=== PATIENT | female | born 1950 | race Hispanic/Latino ===

== ENCOUNTER 2018-04-01 16:23 | Observation (INO) | payer OTHER, MEDICARE ==
[~2018-04-01] VITALS: Ht 152.4 cm; Wt 55.2 kg
[~2018-04-01 16:23] MED LIST: ASPI-1197 PO; BENA1TAB71 PO; CARV6.25 PO; CLON0.2T PO; GLUC-198 PO; HUM10VIA SQ; IBUP-2077 PO; LEVO88TA7 PO; METF-444 PO; SIMV20TA6 PO
[2018-04-01] MEDS ORDERED: DEXTROSE 10%-WATER 1,000 ML IV ONE (16:28)
[2018-04-01 16:44] LABS: BASOPHILS % (AUTO) 1.3 % (0.0-5.0); EOSINOPHILS % (AUTO) 4.6 % (0.0-8.0); LYMPHOCYTES % (AUTO) 25.3 % (21.0-51.0); MEAN CORPUSCULAR HEMOGLOBIN 31.5 pg (27.0-33.0); MEAN CORPUSCULAR HGB CONC 32.9 g/dL (32.0-36.0); MEAN CORPUSCULAR VOLUME 95.7 fL (79-99); MONOCYTES % (AUTO) 6.7 % (3.0-13.0); NEUTROPHILS % (AUTO) 62.1 % (40.0-77.0); NUCLEATED RED BLOOD CELLS 0.1 % (0.0-0.19); PLATELET COUNT (AUTO) 279 K/uL (130-400); RED BLOOD CELL COUNT(AUTO) 3.76 MIL/uL (4.00-5.50); RED CELL DISTRIBUTION WIDTH 13.6 % (11.0-15.5); WHITE BLOOD COUNT (AUTO) 7.8 K/uL (4.8-10.8)
[2018-04-01 16:59] LABS: ALBUMIN 3.9 g/dL (3.5-5.0); BILIRUBIN,TOTAL 0.3 mg/dL (0.2-1.0); CREATININE 1.2 mg/dL (0.5-1.5); POTASSIUM 3.5 mmol/L (3.5-5.1); TOTAL PROTEIN, SERUM 8.6 g/dL (6.0-8.3)
[2018-04-01 17:28] LABS: APPEARANCE,URINE Clear (CLEAR); BILIRUBIN,URINE Negative (NEGATIVE); COLOR,URINE Yellow (YELLOW); GLUCOSE, URINE (UA) Negative (NEGATIVE); KETONES,URINE Negative (NEGATIVE); LEUKOCYTE ESTERASE ,URINE Negative (NEGATIVE); NITRATE,URINE Negative (NEGATIVE); OCCULT BLOOD,URINE Trace (NEGATIVE); PROTEIN,URINE Negative (NEGATIVE); UROBILINOGEN,URINE 0.2 mg/dL (0.2-1.0)
[2018-04-01] MEDS ORDERED: IBUPROFEN 800 MG TAB PO PRN (17:30)
[2018-04-01 17:38] LABS: BACTERIA,URINE Rare /HPF (None Seen); RBC,URINE 0-1 /HPF (0-1); SQUAMOUS EPITHELIAL CELL,UR None Seen /HPF (0-2); WBC,URINE 0-1 /HPF (0-1)
[2018-04-01] MEDS ORDERED: DEXTROSE 50%-WATER 50 ML DISP.SYRIN IV PRN (17:45)
[2018-04-01] MEDS ORDERED: GLUCAGON 1MG KIT 1 MG ML IM PRN (17:45)
[2018-04-01 18:49] VITALS: BP 159/65
[2018-04-01] MEDS: INSULIN HUMULIN R 100 UNIT/ML 3ML SQ SCH (20:47)
[2018-04-01] MEDS: MSM PO SCH (20:49)
[2018-04-01] MEDS: CHONDROITIN A PO SCH (20:49)
[2018-04-01] MEDS: GLUCOSAMINE PO SCH (20:49)
[2018-04-01] MEDS: CARVEDILOL 6.25 MG TABLET PO SCH (20:49)
[2018-04-01] MEDS ORDERED: SIMVASTATIN 20 MG TABLET PO SCH (21:00)
[2018-04-01] MEDS ORDERED: CLONIDINE HCL 0.2 MG TABLET PO SCH (21:00)
[2018-04-02] VITALS: BP 137/55
[2018-04-02 04:00] VITALS: BP 122/62
[2018-04-02 05:47] LABS: HEMOGLOBIN A1C 8.3 % (4.0-6.0)
[2018-04-02 05:55] LABS: ALBUMIN 3.1 g/dL (3.5-5.0); BILIRUBIN,TOTAL 0.3 mg/dL (0.2-1.0); CREATININE 1.1 mg/dL (0.5-1.5); POTASSIUM 4.2 mmol/L (3.5-5.1)
[2018-04-02] MEDS: INSULIN HUMULIN R 100 UNIT/ML 3ML SQ SCH ×2 (06:20→11:51)
[2018-04-02] MEDS ORDERED: LEVOTHYROXINE 88 MCG TABLET PO SCH (06:30)
[2018-04-02] MEDS: MSM PO SCH (08:36)
[2018-04-02] MEDS: GLUCOSAMINE PO SCH (08:36)
[2018-04-02] MEDS: CHONDROITIN A PO SCH (08:36)
[2018-04-02] MEDS: CARVEDILOL 6.25 MG TABLET PO SCH (08:36)
[2018-04-02] MEDS ORDERED: PANTOPRAZOLE SODIUM 40 MG TABLET.DR PO SCH (09:00)
[2018-04-02] MEDS ORDERED: BENAZEPRIL HCL 10 MG TABLET PO SCH (09:00)
[2018-04-02] MEDS ORDERED: HYDROCHLOROTHIAZIDE 25 MG TABLET PO SCH (09:00)
[2018-04-02] MEDS ORDERED: ENOXAPARIN SODIUM 40 MG/0.4 ML SYRINGE SQ SCH (09:00)
[2018-04-02] MEDS ORDERED: ASPIRIN 81MG TAB.CHEW PO SCH (09:00)
[2018-04-02 09:20] VITALS: BP 136/56
[2018-04-02 11:29] VITALS: BP 140/68
[2018-04-02 15:51] VITALS: BP 146/67
== END 2018-04-02 15:45 | disposition home or self-care (01) ==
LOC: EDH 16:23 → EDHIP 17:26 → 3BH 18:38
PROVIDERS: ADMIT Internal Medicine; ATTEND Internal Medicine
DX: E11.649 Type 2 diabetes mellitus with hypoglycemia without coma (principal); I10 Essential (primary) hypertension; E78.5 Hyperlipidemia, unspecified; E16.0 Drug-induced hypoglycemia without coma; I25.10 Atherosclerotic heart disease of native coronary artery without angina pectoris; T38.3X5A Adverse effect of insulin and oral hypoglycemic [antidiabetic] drugs, initial encounter; Z95.1 Presence of aortocoronary bypass graft; Z82.49 Family history of ischemic heart disease and other diseases of the circulatory system; Z83.3 Family history of diabetes mellitus; Z90.710 Acquired absence of both cervix and uterus; Z79.899 Other long term (current) drug therapy; Z79.4 Long term (current) use of insulin
CPT/HCPCS: 36415; 80053; 80061; 81001; 82550; 82948; 83036; 84484; 85025; 93005; 96372; G0378; J1650; J1815; J3490

== ENCOUNTER 2018-05-18 07:36 | Day surgery (SDC) | payer OTHER, MEDICARE ==
[2018-05-18] VITALS (7 sets, daily range): BP systolic 126–188; BP diastolic 61–88
[~2018-05-18] VITALS: Ht 154.9 cm; Wt 52.8 kg
[~2018-05-18 07:36] MED LIST changes: +ALEN70TA47 PO; -BENA1TAB71 PO; +FURO20TA4 PO; -GLUC-198 PO; -HUM10VIA SQ; +INS7030 SQ; +LOSA1TAB42 PO; +SODIUM CHLORIDE 0.9% 1000ML 1,000 ML IV ONE
== END 2018-05-18 10:26 | disposition home or self-care (01) ==
LOC: ENDO 07:36 → DAH 07:36 → ENDO 10:26
PROVIDERS: ATTEND Internal Medicine
DX: D12.2 Benign neoplasm of ascending colon (principal); K63.5 Polyp of colon; K57.30 Diverticulosis of large intestine without perforation or abscess without bleeding; K29.50 Unspecified chronic gastritis without bleeding; E78.5 Hyperlipidemia, unspecified; E03.9 Hypothyroidism, unspecified; E11.9 Type 2 diabetes mellitus without complications; M81.0 Age-related osteoporosis without current pathological fracture; M19.90 Unspecified osteoarthritis, unspecified site; Z79.84 Long term (current) use of oral hypoglycemic drugs; Z79.899 Other long term (current) drug therapy; I25.10 Atherosclerotic heart disease of native coronary artery without angina pectoris; Z79.4 Long term (current) use of insulin
CPT/HCPCS: 43239; 45380; 82948 ×2; 88305; 88312; 93005; A4606; J7030

== ENCOUNTER → 2019-04-21 | Outpatient (CLI) | payer OTHER, MEDICARE ==
[~2019-04-21] MED LIST changes: +ALEN70TA10 PO; -ALEN70TA47 PO; +SIMV-43 PO; -SIMV20TA6 PO; -SODIUM CHLORIDE 0.9% 1000ML 1,000 ML IV ONE
== END | disposition home or self-care (01) ==
LOC: RAH 11:28
PROVIDERS: ATTEND Internal Medicine
DX: S00.93XA Contusion of unspecified part of head, initial encounter (principal); S00.33XA Contusion of nose, initial encounter; X58.XXXA Exposure to other specified factors, initial encounter; Y93.89 Activity, other specified; Y92.89 Other specified places as the place of occurrence of the external cause; Y99.8 Other external cause status
CPT/HCPCS: 70450; 70486

== ENCOUNTER → 2019-05-03 | Outpatient (CLI) | payer OTHER, MEDICARE | END | disposition home or self-care (01) | LOC: RAH 14:49 | PROVIDERS: ATTEND Internal Medicine | DX: I65.23 Occlusion and stenosis of bilateral carotid arteries (principal); G46.2 Posterior cerebral artery syndrome | CPT/HCPCS: 93880 ==

== ENCOUNTER → 2019-07-25 | Outpatient (CLI) | payer OTHER, MEDICARE ==
[~2019-07-25] MED LIST changes: +IOHEXOL-350 50ML VIAL IV ONE
== END | disposition home or self-care (01) ==
LOC: RAH 09:00
PROVIDERS: ATTEND Internal Medicine Cardiovascular Disease
DX: I65.23 Occlusion and stenosis of bilateral carotid arteries (principal)
CPT/HCPCS: 70498; Q9967

== ENCOUNTER → 2020-12-23 | Outpatient (CLI) | payer OTHER, MEDICARE ==
[~2020-12-23] MED LIST changes: -ALEN70TA10 PO; +ALEN70TA80 PO; -IOHEXOL-350 50ML VIAL IV ONE
== END | disposition home or self-care (01) ==
LOC: RAH 11:02
PROVIDERS: ATTEND Internal Medicine
DX: I70.213 Atherosclerosis of native arteries of extremities with intermittent claudication, bilateral legs (principal)
CPT/HCPCS: 93925

== ENCOUNTER 2022-09-24 20:08 | Emergency (ER) | payer MEDICARE, OTHER ==
[~2022-09-24] VITALS: Ht 157.5 cm; Wt 54.4 kg
[2022-09-24 20:27] LABS: BASOPHILS % (AUTO) 0.3 % (0.0-5.0); EOSINOPHILS % (AUTO) 2.2 % (0.0-8.0); HEMATOCRIT 39.4 % (36-48); MEAN CORPUSCULAR HEMOGLOBIN 29.8 pg (27.0-33.0); MEAN CORPUSCULAR HGB CONC 31.7 g/dL (32.0-36.0); MONOCYTES % (AUTO) 6.5 % (3.0-13.0); NEUTROPHILS % (AUTO) 63.7 % (40.0-77.0); PLATELET COUNT (AUTO) 148 K/uL (130-400); RED BLOOD CELL COUNT(AUTO) 4.19 MIL/uL (4.00-5.50); RED CELL DISTRIBUTION WIDTH 17.1 % (11.0-15.5); WHITE BLOOD COUNT (AUTO) 5.8 K/uL (4.8-10.8)
[2022-09-24 20:52] LABS: B-TYPE NATRIURETIC PEPTIDE 2200 pg/mL (0-100)
[2022-09-24 20:59] LABS: ALBUMIN 3.2 g/dL (3.5-5.0); CREATININE 1.3 mg/dL (0.5-1.5); POTASSIUM 3.4 mmol/L (3.5-5.1); TOTAL PROTEIN, SERUM 7.2 g/dL (6.0-8.3)
[2022-09-24] MEDS ORDERED: FUROSEMIDE 40MG VIAL IV ONE (21:00)
[2022-09-24] MEDS ORDERED: IBUP-2076 PO (21:43)
[2022-09-24] MEDS ORDERED: OSEL75 PO (21:43)
[2022-09-24 21:54] VITALS: BP 149/63
== END 2022-09-24 22:04 | disposition home or self-care (01) ==
LOC: EDH 20:08
DX: R07.89 Other chest pain (principal); K80.20 Calculus of gallbladder without cholecystitis without obstruction; J10.1 Influenza due to other identified influenza virus with other respiratory manifestations; E11.9 Type 2 diabetes mellitus without complications; I10 Essential (primary) hypertension; Z79.1 Long term (current) use of non-steroidal anti-inflammatories (NSAID); Z79.4 Long term (current) use of insulin; Z79.82 Long term (current) use of aspirin; Z79.84 Long term (current) use of oral hypoglycemic drugs; Z79.899 Other long term (current) drug therapy; Z95.1 Presence of aortocoronary bypass graft; Z20.822 Contact with and (suspected) exposure to COVID-19
CPT/HCPCS: 99285; 96374; 71045; 87635; 84484; 80053; 83880; 83690; 85025; 87804 ×2; 36415; 93005; C9803; J1940

== ENCOUNTER → 2022-11-19 | Outpatient (CLI) | payer OTHER ==
[~2022-11-19] MED LIST changes: +IBUP-2076 PO; +OSEL75 PO
== END | disposition home or self-care (01) ==
LOC: SHCH 07:53
PROVIDERS: ATTEND Internal Medicine Cardiovascular Disease
DX: I08.8 Other rheumatic multiple valve diseases (principal); I65.23 Occlusion and stenosis of bilateral carotid arteries; I25.10 Atherosclerotic heart disease of native coronary artery without angina pectoris; E11.9 Type 2 diabetes mellitus without complications; E78.5 Hyperlipidemia, unspecified; E03.9 Hypothyroidism, unspecified; I87.2 Venous insufficiency (chronic) (peripheral); I10 Essential (primary) hypertension
CPT/HCPCS: 93306; 93880; 93970

== ENCOUNTER 2023-02-10 07:45 | Day surgery (SDC) | payer OTHER ==
[2023-02-08 11:58] LABS: BASOPHILS # (AUTO) 0.03 K/uL (0.00-0.20); BASOPHILS % (AUTO) 0.5 % (0.0-5.0); EOSINOPHILS # (AUTO) 0.45 K/uL (0.00-0.70); EOSINOPHILS % (AUTO) 7.7 % (0.0-8.0); HEMATOCRIT 36.6 % (36-48); IMMATURE GRANULOCYTE ABSOLUTE 0.02 K/uL (0-1); LYMPHOCYTES % (AUTO) 17.8 % (21.0-51.0); MEAN CORPUSCULAR HEMOGLOBIN 30.5 pg (27.0-33.0); MEAN CORPUSCULAR HGB CONC 30.6 g/dL (32.0-36.0); MEAN CORPUSCULAR VOLUME 99.7 fL (79-99); MONOCYTES # (AUTO) 0.5 K/uL (0.1-1.0); MONOCYTES % (AUTO) 8.7 % (3.0-13.0); NEUTROPHILS # (AUTO) 3.8 K/uL (1.8-7.7); PLATELET COUNT (AUTO) 205 K/uL (130-400); RED BLOOD CELL COUNT(AUTO) 3.67 MIL/uL (4.00-5.50); WHITE BLOOD COUNT (AUTO) 5.8 K/uL (4.8-10.8)
[2023-02-08 12:13] LABS: CREATININE 1.1 mg/dL (0.5-1.5); POTASSIUM 4.7 mmol/L (3.5-5.1)
[2023-02-08 12:16] LABS: INR 1.16 (0.85-1.15); PROTHROMBIN TIME 13.3 SEC (9.6-11.6)
[2023-02-08 12:17] LABS: PARTIAL THROMBOPLASTIN TIME 31.2 SEC (26.3-35.5)
[2023-02-08 14:12] VITALS: BP 134/58; PULSE 80; RESP 18
[2023-02-10] VITALS (10 sets, daily range): BP systolic 110–150; BP diastolic 47–68; PULSE 75–88; RESP 11–18
[~2023-02-10] VITALS: Ht 152.4 cm; Wt 55.8 kg
[~2023-02-10 07:45] MED LIST changes: -ALEN70TA80 PO; -ASPI-1197 PO; -CARV6.25 PO; +DAPA10TA PO; +DOCU100C33 PO; +ERGO500093 PO; -FURO20TA4 PO; +GABA-529 PO; +HUM10VIA SQ; -IBUP-2076 PO; -IBUP-2077 PO; -INS7030 SQ; +LEVO75 PO; -LEVO88TA7 PO; -LOSA1TAB42 PO; -OSEL75 PO; +RIVA2.5T PO; +SACU1TAB7 PO; -SIMV-43 PO; +SIMV-46 PO; +TRAM-355 PO
[2023-02-10] MEDS ORDERED: 0.9%NACL 1000ML 1,000 ML IV ONE (09:04)
[2023-02-10] MEDS ORDERED: FURO20TA4 PO (10:08)
[2023-02-10] MEDS ORDERED: BUPIVACAINE/PF 0.25% 30ML VIAL IJ ONE (10:19)
[2023-02-10] MEDS ORDERED: IOHEXOL-350 50ML VIAL IV ONE (10:19)
[2023-02-10] MEDS ORDERED: LIDOCAINE HCL 1% MDV 50ML VIAL ONE (10:19)
[2023-02-10] MEDS ORDERED: CEFAZOLIN SODIUM 1 GM VIAL ONE (10:52)
[2023-02-10] MEDS ORDERED: MIDAZOLAM HCL 1 MG/ML 2ML VIAL ONE ×2 (10:57→12:38)
[2023-02-10] MEDS ORDERED: MEPERIDINE-PF 25 MG/ML SYG ONE ×2 (10:57→12:38)
[2023-02-10] MEDS ORDERED: THROMBIN-JMI 5000 UNIT/VIAL TP ONE (12:09)
[2023-02-10] MEDS ORDERED: BACITRACIN 1 EACH PACKET TP ONE (12:30)
[2023-02-10] MEDS ORDERED: ACETAMINOPHEN WITH CODEINE 1 TAB TAB PO PRN ×2 (13:00→13:30)
[2023-02-10] MEDS ORDERED: ACETAMINOPHEN 500 MG TABLET PO PRN (13:00)
== END 2023-02-10 18:15 | disposition home or self-care (01) ==
LOC: DAH 07:45
PROVIDERS: ATTEND Internal Medicine Cardiovascular Disease
DX: Z45.02 Encounter for adjustment and management of automatic implantable cardiac defibrillator (principal); I25.5 Ischemic cardiomyopathy; I11.0 Hypertensive heart disease with heart failure; I50.42 Chronic combined systolic (congestive) and diastolic (congestive) heart failure; I25.2 Old myocardial infarction; E11.9 Type 2 diabetes mellitus without complications; E78.5 Hyperlipidemia, unspecified; E03.9 Hypothyroidism, unspecified; M19.90 Unspecified osteoarthritis, unspecified site; M81.0 Age-related osteoporosis without current pathological fracture; Z79.4 Long term (current) use of insulin; Z79.899 Other long term (current) drug therapy; Z79.01 Long term (current) use of anticoagulants; Z79.82 Long term (current) use of aspirin; Z90.710 Acquired absence of both cervix and uterus; Z98.890 Other specified postprocedural states; Z82.49 Family history of ischemic heart disease and other diseases of the circulatory system; Z83.3 Family history of diabetes mellitus
CPT/HCPCS: 80048; 85025; 85610; 85730; 36415; 93005; 33264; 33225; 82948 ×2; 71045; C1769 ×2; C1882; C1900; J0690; J7030; J3490 ×3; J2250 ×2; J2175 ×2; Q9967; A4615; A4215; A6251; A4222; A4221; A4216; A6258; A4606; A4223 ×2; 99156; 99157

== ENCOUNTER 2023-07-02 18:49 | Observation (INO) | payer OTHER ==
[~2023-07-02] VITALS: Ht 152.4 cm; Wt 51.6 kg
[~2023-07-02 18:49] MED LIST changes: +FURO20TA4 PO
[2023-07-02] MEDS ORDERED: IOHEXOL 350 MG/ML 100ML INFUS..BTL IV ONE (19:35)
[2023-07-02 19:45] LABS: BASOPHILS # (AUTO) 0.04 K/uL (0.00-0.20); BASOPHILS % (AUTO) 0.4 % (0.0-5.0); EOSINOPHILS # (AUTO) 0.23 K/uL (0.00-0.70); EOSINOPHILS % (AUTO) 2.4 % (0.0-8.0); HEMATOCRIT 37.4 % (36-48); IMMATURE GRANULOCYTE ABSOLUTE 0.04 K/uL (0-1); LYMPHOCYTES # (AUTO) 1.3 K/uL (1.0-4.8); LYMPHOCYTES % (AUTO) 13.9 % (21.0-51.0); MEAN CORPUSCULAR HEMOGLOBIN 31.1 pg (27.0-33.0); MEAN CORPUSCULAR HGB CONC 32.6 g/dL (32.0-36.0); MEAN CORPUSCULAR VOLUME 95.4 fL (79-99); MONOCYTES # (AUTO) 0.6 K/uL (0.1-1.0); MONOCYTES % (AUTO) 6.7 % (3.0-13.0); NEUTROPHILS # (AUTO) 7.2 K/uL (1.8-7.7); NEUTROPHILS % (AUTO) 76.2 % (40.0-77.0); PLATELET COUNT (AUTO) 183 K/uL (130-400); RED BLOOD CELL COUNT(AUTO) 3.92 MIL/uL (4.00-5.50); WHITE BLOOD COUNT (AUTO) 9.4 K/uL (4.8-10.8)
[2023-07-02 19:55] LABS: CREATININE 1.1 mg/dL (0.5-1.5); POTASSIUM 4.3 mmol/L (3.5-5.1)
[2023-07-02 20:00] LABS: ALBUMIN 3.8 g/dL (3.5-5.0); BILIRUBIN,TOTAL 0.6 mg/dL (0.2-1.0); TOTAL PROTEIN, SERUM 8.6 g/dL (6.0-8.3)
[2023-07-02] MEDS: ONDANSETRON 4MG INJ IVP ONE (20:19)
[2023-07-02] MEDS: FAMOTIDINE 20MG VIAL IV ONE (20:20)
[2023-07-02] MEDS: KETOROLAC 30MG VIAL (30MG/ML) IVP ONE (20:20)
[2023-07-02] MEDS ORDERED: KETOROLAC 15MG/ML VIAL (15MG/ML) IV PRN (23:00)
[2023-07-02] MEDS ORDERED: ACETAMINOPHEN 325 MG TAB PO PRN (23:00)
[2023-07-03] VITALS (8 sets, daily range): BP systolic 128–143; BP diastolic 56–67; PULSE 70–80; RESP 16–18; O2SAT 94–98
[2023-07-03 05:50] LABS: BASOPHILS # (AUTO) 0.03 K/uL (0.00-0.20); BASOPHILS % (AUTO) 0.5 % (0.0-5.0); EOSINOPHILS # (AUTO) 0.09 K/uL (0.00-0.70); EOSINOPHILS % (AUTO) 1.6 % (0.0-8.0); IMMATURE GRANULOCYTE ABSOLUTE 0.02 K/uL (0-1); LYMPHOCYTES # (AUTO) 1.3 K/uL (1.0-4.8); LYMPHOCYTES % (AUTO) 22.8 % (21.0-51.0); MEAN CORPUSCULAR HEMOGLOBIN 31.1 pg (27.0-33.0); MEAN CORPUSCULAR HGB CONC 32.2 g/dL (32.0-36.0); MEAN CORPUSCULAR VOLUME 96.6 fL (79-99); MONOCYTES # (AUTO) 0.5 K/uL (0.1-1.0); MONOCYTES % (AUTO) 8.5 % (3.0-13.0); NEUTROPHILS # (AUTO) 3.8 K/uL (1.8-7.7); NEUTROPHILS % (AUTO) 66.3 % (40.0-77.0); PLATELET COUNT (AUTO) 167 K/uL (130-400); RED BLOOD CELL COUNT(AUTO) 3.83 MIL/uL (4.00-5.50); WHITE BLOOD COUNT (AUTO) 5.8 K/uL (4.8-10.8)
[2023-07-03 06:02] LABS: PROTHROMBIN TIME 11.6 SEC (9.6-11.6)
[2023-07-03 06:06] LABS: ALBUMIN 3.2 g/dL (3.5-5.0); BILIRUBIN,TOTAL 0.5 mg/dL (0.2-1.0); CREATININE 1.2 mg/dL (0.5-1.5); MAGNESIUM 1.7 mg/dL (1.80-2.40); POTASSIUM 4.8 mmol/L (3.5-5.1); TOTAL PROTEIN, SERUM 7.5 g/dL (6.0-8.3)
[2023-07-03 07:09] LABS: ERYTHROCYTE SEDIMENTATION RATE 57 MM/HR (0-30)
[2023-07-03] MEDS: FAMOTIDINE 20MG TAB PO SCH (09:03)
[2023-07-03] MEDS: ACETAMINOPHEN 325 MG TAB PO PRN (09:05)
[2023-07-03] MEDS ORDERED: CARV6.25 PO (09:14)
[2023-07-03] MEDS ORDERED: LORA10TA7 PO (09:14)
[2023-07-03] MEDS ORDERED: HYDR12.54 PO (09:14)
[2023-07-03] MEDS ORDERED: FAMO40TA75 PO (09:14)
[2023-07-03] MEDS ORDERED: ACETAMINOPHEN WITH CODEINE 1 TAB TAB PO PRN (13:30)
[2023-07-03] MEDS ORDERED: CLONIDINE HCL 0.2 MG TABLET PO PRN (17:30)
[2023-07-03] MEDS ORDERED: MAGNESIUM 2GM PREMIX 50ML 50 ML IV PRN (19:30)
[2023-07-03] MEDS: METFORMIN HCL 500 MG TABLET PO SCH (20:27)
[2023-07-03] MEDS: SACUBITRIL/VALSARTAN 1 EACH TABLET PO SCH (20:27)
[2023-07-03] MEDS: CARVEDILOL 6.25 MG TABLET PO SCH (20:28)
[2023-07-03] MEDS: RIVAROXABAN 2.5 MG TABLET PO SCH (20:28)
[2023-07-03] MEDS: SIMVASTATIN 20 MG TABLET PO SCH (20:28)
[2023-07-03] MEDS: INSULIN HUMULIN R 100 UNIT/ML 3ML SQ SCH (20:33)
[2023-07-03] MEDS: TRAMADOL HCL 50 MG TABLET PO PRN (20:40)
[2023-07-04] VITALS (9 sets, daily range): BP systolic 93–146; BP diastolic 52–57; PULSE 60–70; RESP 18–20; O2SAT 94
[2023-07-04 04:29] LABS: APPEARANCE,URINE CLEAR (CLEAR); BILIRUBIN,URINE NEGATIVE (NEGATIVE); COLOR,URINE YELLOW (YELLOW); GLUCOSE, URINE (UA) 200 mg/dL (NEGATIVE); KETONES,URINE NEGATIVE (NEGATIVE); LEUKOCYTE ESTERASE ,URINE 250 Leu/uL (NEGATIVE); NITRATE,URINE NEGATIVE (NEGATIVE); OCCULT BLOOD,URINE NEGATIVE (NEGATIVE); PH,URINE 5.5 (5.0-8.0); PROTEIN,URINE 20 mg/dL (NEGATIVE); UROBILINOGEN,URINE 3 mg/dL (0.2-1.0)
[2023-07-04 04:36] LABS: ADD UA MICROSCOPIC YES
[2023-07-04 04:38] LABS: MUCUS,URINE RARE LPF (None Seen); SQUAMOUS EPITHELIAL CELL,UR RARE /HPF (0-2); WBC,URINE 26-50 /HPF (0-1)
[2023-07-04] MEDS: LEVOTHYROXINE 75 MCG TABLET PO SCH (05:38)
[2023-07-04] MEDS: POLYETHYLENE GLYCOL 3350 17 GM POWD.PACK PO SCH (09:19)
[2023-07-04] MEDS: LORATADINE 10 MG TABLET PO SCH (09:21)
[2023-07-04] MEDS: HYDROCHLOROTHIAZIDE 25 MG TABLET PO SCH (09:22)
[2023-07-04] MEDS: CEFTRIAXONE 1G VIAL IVPB SCH (11:42)
[2023-07-04] MEDS: ONDANSETRON 4MG INJ IV PRN (12:22)
[2023-07-04] MEDS: BISACODYL 10 MG SUPP.RECT RC ONE (17:26)
[2023-07-04] MEDS: LIDOCAINE 4% ADH..PATCH TP SCH (18:44)
[2023-07-04] MEDS: DOCUSATE SODIUM 100 MG CAP PO PRN (20:28)
[2023-07-05] VITALS (7 sets, daily range): BP systolic 92–126; BP diastolic 46–63; PULSE 60–67; RESP 15–20; O2SAT 94
[2023-07-05] MEDS: BISACODYL 10 MG SUPP.RECT RC PRN (06:38)
== END 2023-07-05 14:30 | disposition home or self-care (01) ==
LOC: EDH 18:49 → EDHIP 22:35 → INTOOBSV 22:35 → 2DH 07-03 03:27
PROVIDERS: ADMIT Internal Medicine; ATTEND Internal Medicine
DX: S22.42XA Multiple fractures of ribs, left side, initial encounter for closed fracture (principal); J93.9 Pneumothorax, unspecified; E11.65 Type 2 diabetes mellitus with hyperglycemia; I10 Essential (primary) hypertension; I25.10 Atherosclerotic heart disease of native coronary artery without angina pectoris; E03.9 Hypothyroidism, unspecified; M19.90 Unspecified osteoarthritis, unspecified site; E78.5 Hyperlipidemia, unspecified; I48.91 Unspecified atrial fibrillation; K21.9 Gastro-esophageal reflux disease without esophagitis; Z79.01 Long term (current) use of anticoagulants; Z95.1 Presence of aortocoronary bypass graft; Z79.899 Other long term (current) drug therapy; W01.190A Fall on same level from slipping, tripping and stumbling with subsequent striking against furniture, initial encounter; Y92.89 Other specified places as the place of occurrence of the external cause; Y93.01 Activity, walking, marching and hiking; Y99.8 Other external cause status
CPT/HCPCS: 99285; 70450 ×2; 96375; 80053 ×2; 85025 ×2; 36415 ×2; 73080; 73060; 73590; 73564; 72125; 71260; 74177; 93005; 96372 ×3; 83735; 85610; 85730; 85651; 82948 ×11; 96365; 97161; 71045; 97530; 97116; 96376 ×2; 87088; 81001; 96366; J3490; J2405 ×3; J1885; Q9967; J1815 ×3; G0378; J0696; G8980-CI; G8983-CI

== ENCOUNTER → 2023-07-14 | Outpatient (CLI) | payer OTHER ==
[~2023-07-14] MED LIST changes: +CARV6.25 PO; -CLON0.2T PO; +FAMO40TA75 PO; +HYDR12.54 PO; +LORA10TA7 PO; -TRAM-355 PO
== END | disposition home or self-care (01) ==
LOC: RAH 14:45
PROVIDERS: ATTEND Internal Medicine
DX: I51.7 Cardiomegaly (principal); J93.9 Pneumothorax, unspecified; M47.815 Spondylosis without myelopathy or radiculopathy, thoracolumbar region
CPT/HCPCS: 71046

== ENCOUNTER → 2024-02-21 | Outpatient (CLI) | payer OTHER | END | disposition home or self-care (01) | LOC: SHCH 13:12 | PROVIDERS: ATTEND Internal Medicine Cardiovascular Disease | DX: I87.2 Venous insufficiency (chronic) (peripheral) (principal); I87.1 Compression of vein; I65.23 Occlusion and stenosis of bilateral carotid arteries; I73.9 Peripheral vascular disease, unspecified | CPT/HCPCS: 93880; 93925; 93970 ==

== ENCOUNTER → 2024-07-24 | Outpatient (CLI) | payer OTHER, MEDICARE ==
[~2024-07-24] MED LIST changes: +ALEN35TA53 PO; +ASPI-1443 PO; +CEFD300C3 PO; +CLON-353 PO; -DOCU100C33 PO; +FAMO40TA7 PO; -FAMO40TA75 PO; -HUM10VIA SQ; -HYDR12.54 PO; +INSU10VI3 SQ; +LEVO100C4 PO; -LEVO75 PO; +OSEL75 PO; +RIVA10TA PO; -RIVA2.5T PO
[2024-07-24] MEDS: REGADENOSON 0.4 MG/5 ML PF SYG IVP ONE (11:16)
--- NOTE | 2024-07-31 10:46 | HMCSR ---
APPROVED REPORT Height: 5 ft 0in Weight: 125 lbs TEST INDICATIONS CAD The imaging protocol used to acquire images was Rest Tc-99m/stress Tc-99m 1 day Consent: The procedure was explained and understood by the patient. Informerd consent was witnessed Hugh BEACH RN First, low dose rest was performed then high dose stress. RESTING DATA: The resting ekg shows: NSR, V paced Rest SPECT myocardial perfusion imaging was performed in supine position 59 minutes following the int ravenous injection of 10.8 mCi of Tc-99 Sestamibi. Time of rest injection: 09:15: Date: 07/24/2024 Time of rest imagin:14: Date: 07/24/2024 PHARMACOLOGIC STRESS: Pharmacologic stress test was performed by injecting regadenoson 0.4 mg IV push followed by the intra venous injection of 32.0 mCi of Tc-99 Sestamibi. Time of stress injection: 10:39: Date: 07/24/2024 Time of stress imagin:01: Date: 07/24/2024 Heart Rate at time of stress injection: 70 bpm. Gated Stress SPECT was performed 82 minutes after stress injection. The images were gated to evaluate regional wall motion and calculate left ventricular ejection fracti on. STRESS DETAILS Reason for Termination: Infusion complete Stress Symptoms: Dyspnea Max HR Achieved: 70 bpm % of APMHR Achieved: 48 Max Blood Pressure: 149/74 mmHg Stress ECG: NSR, V-paced Study quality was good. Lung uptake was Normal. Artifact: breast and diaphragmatic artifact LEFT VENTRICLE Size: The left ventricular size is mildly to moderately dilated. Systolic Function:The left ventricular systolic function is moderately to severely decreased. Wall Motion: Severe global hypokinesis LV PERFUSION Stress Perfusion: Size:Medium (3-4 segments) Severity: Mild to moderate Location: lateral Rest Perfusion: Size: Medium (3-4 segments) Severity: Mild to moderate Location: lateral LV PERFUSION 2 Stress Perfusion: Size:Medium (3-4 segments) Severity: Severe Location: mid-anterolateral Rest Perfusion: Size: Medium (3-4 segments) Severity: Severe Location: mid-anterolateral IMPRESSION Abnormal pharmacologic nuclear stress test. Global LV Function: Severely reduced Stress ECG Summary: Nondiagnostic LV Perfusion Summary: Abnormal Conclusion Abnormal pharmacologic nuclear stress test for fixed defects, dilated LV and reduced EF No reversible ischemia Global LV Function: Severely reduced Stress ECG Summary: Nondiagnostic LV Perfusion Summary: Abnormal for mutiple fixed defects
== END | disposition home or self-care (01) ==
LOC: SHCH 08:47
PROVIDERS: ATTEND Internal Medicine Cardiovascular Disease
DX: I34.0 Nonrheumatic mitral (valve) insufficiency (principal); I25.10 Atherosclerotic heart disease of native coronary artery without angina pectoris; R06.09 Other forms of dyspnea
CPT/HCPCS: 78452; 93017; J2785; A9500 ×2

== ENCOUNTER 2024-08-09 20:32 | Emergency (ER) | payer OTHER, MEDICARE ==
[~2024-08-09] VITALS: Ht 152.4 cm; Wt 48.5 kg
[~2024-08-09 20:32] MED LIST changes: +FURO40TA5 PO; -LEVO100C4 PO; +LEVO100C5 PO; -OSEL75 PO
--- NOTE | 2024-08-09 20:59 | ERN ---
ED Note History of Present Illness Stated Complaint: ABD PAIN, RECTAL BLEEDING Chief Complaint: Abdominal Pain Time Seen by MD: 20:54 Dictation: This is a 73-year-old female who was recently admitted to the hospital his complaints of abdominal bloating chronic abdominal complaints. She comes back in stating that she has ongoing chronic abdominal pain and also had some bleeding in urine although initially she stated that the blood was in the rectum. She stated that she has perineal pain and also hypogastric pain. She has had chronic abdominal issues for a long time and she was recently discharged after course of hospitalization last week. Patient's daughter verified the history for me. No history of any fevers chills or rigors. No history of any kidney stones. She does report small amounts of mucoid discharge from the urethra. She denied any blood from the stools for me. No shortness of breath PND orthopnea no chest pain Temperature 98.1 pulse 100 respirations 20 blood pressure 99/82 initially. past medical history of coronary artery disease CABG 2007, ischemic heart disease ejection fraction of 25-30% with a biventricular ICD, hypertension hyperlipidemia and type 2 diabetes mellitus, CKD stage and bilateral carotid artery disease 50% stenosis, peripheral artery disease, hypothyroidism and chronic GI symptoms bloating and abdominal pain Allergies: Coded Allergies: No Known Drug Allergies (Unverified Allergy, Unknown, 07/05/15) Home Meds Active Scripts Acetaminophen with Codeine (Acetaminophen-Cod #3 Tablet) 300 Mg-30 Mg Tablet, 1 TAB PO Q6HPRN PRN for pain, #7 TAB 0 Refills Prov:KELLY CHRISTOPHER MD 08/10/24 Nitrofurantoin Monohyd/M-Cryst (Macrobid 100 mg Capsule) 100 Mg Capsule, 1 CAP PO BID for 7 Days, #14 CAP 0 Refills Prov:KELLY CHRISTOPHER MD 08/10/24 Cefdinir (Cefdinir) 300 Mg Capsule, 1 CAP PO BID for uti for 10 Days, #20 CAP 0 Refills Prov:BRIAN SILVERIO MD 08/02/24 Furosemide (Furosemide) 40 Mg Tablet, 1 TAB PO DAILY for HEARTFAILURE for 30 Days, #30 TAB 0 Refills Prov:BRIAN SILVERIO MD 08/02/24 Furosemide (Furosemide) 20 Mg Tablet, 20 MG PO DAILYLUNCH for 30 Days, #30 TAB 0 Refills Prov:BRIAN SILVERIO MD 08/02/24 Reported Medications Alendronate Sodium (Alendronate Sodium) 35 Mg Tablet, 35 MG PO QWEEK, TAB 07/30/24 Metformin HCl (Metformin HCl) 500 Mg Tablet, 1 TAB PO BID for 30 Days, #60 TAB 0 Refills 07/30/24 Gabapentin (Gabapentin) 100 Mg Capsule, 100 MG PO TID, CAP 07/30/24 Loratadine (Loratadine) 10 Mg Tablet, 10 MG PO DAILY, TAB 07/30/24 Famotidine (Famotidine) 40 Mg Tablet, 1 TAB PO DAILY for 30 Days, #30 TAB 0 Refills 07/30/24 Ergocalciferol (Vitamin D2) (Vitamin D2) 1,250 Mcg (79076 Unit) Capsule, 1250 MCG PO QWEEK, CAP 07/30/24 Insuln Asp Prt/Insulin Aspart (Novolog Mix 70-30 Vial) 100 Unit/Ml (70-30) Vial, 10 UNIT SQ HS, VIAL 07/04/24 Insuln Asp Prt/Insulin Aspart (Novolog Mix 70-30 Vial) 100 Unit/Ml (70-30) Vial, 20 UNIT SQ DAILY, VIAL 07/04/24 Clonidine HCl (Catapress 0.2 mg Tab) 0.2 Mg Tablet, 1 TAB PO HS 07/04/24 Levothyroxine Sodium (Levothyroxine) 100 Mcg Capsule, 1 CAP PO DAILY for 30 Days, #30 CAP 0 Refills 07/04/24 Rivaroxaban (Xarelto) 10 Mg Tablet, 2.5 MG PO BID, TAB 07/04/24 Sacubitril/Valsartan (Entresto 49 mg-51 mg Tablet) 49 Mg-51 Mg Tablet, 1 TAB PO BID for 30 Days, #60 TAB 0 Refills 07/04/24 Aspirin (Aspirin EC) 81 Mg Tablet.dr, 1 TAB PO DAILY for 30 Days, #30 TAB 0 Refills 07/04/24 Dapagliflozin Propanediol (Farxiga) 10 Mg Tablet, 1 TAB PO DAILY for 30 Days, #30 TAB 0 Refills 07/04/24 Carvedilol (Carvedilol) 6.25 Mg Tablet, 6.25 MG PO BID, TAB 07/03/23 Simvastatin (Simvastatin) 40 Mg Tablet, 1 TAB PO HS 02/08/23 Past Medical History Past Medical History: Arthritis, Diabetes-Type II, Hypertension, Hypothyroid Surgical History: CABG, Pacer/AICD Family History: Negative Social History: Negative History: Not Applicable RN Note Reviewed/Agreed w/PFSH: Yes Review of System Dictation Constitutional: Negative for fever,chills, and weight loss Eyes: Negative for injury, pain,redness, and discharge ENT: Negative for injury,pain or swelling Cardiovascular: Negative for chest pain, palpitations, and edema Respiratory: Negative for shortness of breath, cough, and wheezing, Abdomen/GI: Positive for lower abdominal pain, denies nausea, vomiting, diarrhea, and constipation Back: Negative for injury and pain : Negative for injury, bleeding and positive for pain in the private area and discharge MS/Extremity: Negative for injury and deformity Skin: Negative for rash, and discoloration Neuro: Negative for headache, weakness, numbness, tingling, and seizure Psych: Negative for suicide ideation, homicidal ideation, and hallucinations Initial Vital Sign VS Vital Signs Date Time Temp Pulse Resp B/P (MAP) Pulse Ox O2 Delivery O2 Flow Rate FiO2 08/09/24 20:50 98.1 100 20 99/82 98 Room Air 0 Physical Exam Dictation General: awake, alert, NAD Head/Face: Normocephalic, atraumatic Eyes: PERRL, EOMI, vision at baseline ENT: oral cavity clear, TMs clear, no signs of infection Neck: Trachea midline, supple, no nuchal rigidity Cardiovascular: RRR, normal S1/S2, No MRGs, no JVD Respiratory: CTAB, no respiratory distress, No rales or wheezes Abdomen: Soft, mild tenderness in the hypogastrium mons pubis, non-distended, normal bowel sounds, no guarding or rebound. Vulva did not show any blood or discharge. No blood in the anus or rectum Skin: Warm, dry, normal turgor, no rash MS/Extremity: Pulses equal, no cyanosis, neurovascular intact, FROM Neuro: COAx4, GCS 15, strength 5/5, CN 2-12 intact, normal cerebellar exam, normal gait, Psych: Normal behavior, mood, and affect normal Extremities-trace edema without any palpable cords, Homans sign is negative Results (Laboratory/Radiology) Laboratory/Radiology Laboratory Tests Test 08/09/24 21:08 White Blood Count 10.7 K/uL (4.8-10.8) Red Blood Count 4.58 MIL/uL (4.00-5.50) Hemoglobin 13.5 g/dL (12.0-16.0) Hematocrit 43.8 % (36-48) Mean Corpuscular Volume 95.6 fL (79-99) Mean Corpuscular Hemoglobin 29.5 pg (27.0-33.0) Mean Corpuscular Hemoglobin Concent 30.8 g/dL (32.0-36.0) L Red Cell Distribution Width 16.1 % (11.0-15.5) H Platelet Count 306 K/uL (130-400) Mean Platelet Volume 10.5 fL (7.5-10.5) Immature Granulocyte % (Auto) 0.3 % (0-1) Neutrophils (%) (Auto) 78.3 % (40.0-77.0) H Lymphocytes (%) (Auto) 14.4 % (21.0-51.0) L Monocytes (%) (Auto) 5.6 % (3.0-13.0) Eosinophils (%) (Auto) 1.0 % (0.0-8.0) Basophils (%) (Auto) 0.4 % (0.0-5.0) Neutrophils # (Auto) 8.4 K/uL (1.8-7.7) H Lymphocytes # (Auto) 1.6 K/uL (1.0-4.8) Monocytes # (Auto) 0.6 K/uL (0.1-1.0) Eosinophils # (Auto) 0.11 K/uL (0.00-0.70) Basophils # (Auto) 0.04 K/uL (0.00-0.20) Absolute Immature Granulocyte (auto 0.03 K/uL (0-1) Nucleated Red Blood Cells 0.0 % (0.0-0.19) Red Blood Cell Morphology See comments Sodium Level 141 mmol/L (136-145) Potassium Level 3.4 mmol/L (3.5-5.1) L Chloride Level 101 mmol/L (101-111) Carbon Dioxide Level 33 mmol/L (21-32) H Blood Urea Nitrogen 14 mg/dL (7-18) Creatinine 1.3 mg/dL (0.5-1.0) H Glomerular Filtration Rate Calc 43 mL/min (>90) Random Glucose 179 mg/dL (70-105) H Total Calcium 8.1 mg/dL (8.5-10.1) L Total Creatine Kinase 98 U/L (21-232) # Troponin I High Sensitivity 23.9 ng/L (4-50) B-Type Natriuretic Peptide 920 pg/mL (0-100) H Serum Alcohol < 3 mg/dL (0-10) Labs Reviewed?: Yes Ultrasound Comment: Echocardiogram Conclusion The LVEF is 50-55%. Septal bounce is present. Device lead is present in the right ventricle. The left atrium is moderately dilated. Right atrium and right ventricle are severely dilated. DICTATED BY: JUAN PAL DO DATE: 07/04/2428 ELECTRONICALLY SIGNED BY: JUAN PAL DO DATE: 07/04/[address] Scan Comment: CT ABDOMEN WITHOUT CONTRAST. CT PELVIS WITHOUT CONTRAST. INDICATION: Lower abdominal pain. TECHNIQUE: Routine transaxial imaging using 5 mm slice thickness through the abdomen and pelvis without the administration of IV contrast. Thin slice reconstructions are also provided. Coronal and sagittal reformatted images acquired for interpretation. CT was performed with one or more of the following dose reduction techniques: Automated exposure control, adjustment of the mA and/or kV according to patient size, or use of iterative reconstruction technique. COMPARISON: 07/02/2023 FINDINGS: ON NONCONTRAST IMAGING: ABDOMEN: Heart is enlarged. Trace right pleural effusion. No abnormal renal calcifications, hydronephrosis, perinephric inflammation, or proximal hydroureter detected. Mild liver contour nodularity without biliary duct dilation. Liver is normal in size. The spleen is normal in size and attenuation. Several peripherally having calcific gallstones. The pancreas appears normal without pancreatic duct dilation. The adrenal glands appear normal. No significant abdominal, retrocrural or retroperitoneal adenopathy noted. No evidence for intra-abdominal free air or organized fluid collection. Small amount of free fluid scattered throughout the abdomen and pelvis. No aortic aneurysmal dilation identified. PELVIS: Velazquez catheter occupies an empty urinary bladder. No evidence for free air or organized pelvic fluid collection. No significant pelvic adenopathy detected. Visualized small and large bowel loops appear unremarkable. Terminal ileum appears unremarkable. The appendix appears normal. Multiple chronic left mid to lower rib fracture deformities. Spine is intact. IMPRESSION: 1. Mild liver contour nodularity may represent cirrhotic disease. Correlation with liver function tests is recommended. Small-volume abdominopelvic ascites may be related. 2. Cholelithiasis. 3. Trace right pleural fluid. 4. Cardiomegaly. DICTATED BY: JOHN MURPHY MD DATE: 07/30/24 1656 ELECTRONICALLY SIGNED BY: JOHN MURPHY MD DATE: 07/30/24 1701 ED Course ED Course Orders Procedure Category Date Status Time Urinalysis Profile LAB 08/09/24 Logged 20:56 Alcohol, Blood LAB 08/09/24 Complete 20:59 Cardiac Panel LAB 08/09/24 Complete 20:59 Cbc With Differential LAB 08/09/24 Complete 20:59 Basic Metabolic Panel LAB 08/09/24 Complete 20:59 B-Type Natriuretic LAB 08/09/24 Complete Peptide 20:59 12 Lead Ekg Tracing- EKG 08/09/24 Complete Technical 20:59 Morphine 2mg Syg PHA 08/09/24 Complete (Morphine 2mg Syg) 23:00 Current Medications Medications (Trade) Dose Ordered Sig/Sigrid Route PRN Reason Start Time Stop Time Status Last Admin Dose Admin Morphine Sulfate (morPHINE 2MG SYG) 2 mg ONCE ONCE IVP 08/09/24 23:00 08/09/24 23:01 DC 08/09/24 23:16 Vital Signs Date Time Temp Pulse Resp B/P (MAP) Pulse Ox O2 Delivery O2 Flow Rate FiO2 08/09/24 20:50 98.1 100 20 99/82 98 Room Air 0 We will perform diagnostic labs, and administer medications according to the patient's complaint. Once the results are available, will review and personally interpreted the labs to rule out any acute life-threatening emergency the trach require immediate intervention and treatment. I will then re-evaluate the patient after treatment and diagnostic exams have return to determine whether the patient requires any further testing, can safely be discharged home or need further admission to hospital for additional treatment and evaluation. CBC BNP 7 normal. I reviewed the CT abdomen and pelvis that was done on 07/30/2024 Patient unable to produce urine. We have given some fluids encouraged p.o. fluid Responded to pain medicine and the perineal pain hypogastric pain is significantly improved Patient requesting an antibiotic prior to DC. To follow up with her primary care physician. Daughter at bedside and I updated them on labs and workup so far. Medical Decision Making MDM MDM: Differential diagnosis: Cystitis, nephrolithiasis, urethritis Rationale: Tests considered and ordered secondary to shared decision making include: Previous outside records reviewed: Old ER visits. Risk of complication and/or morbidity or mortality of patient management: None Medications-Per medication reconciliation Need for hospitalization: Patient does not meet criteria for hospitalization. Need for emergency major/minor surgery: No There are no social concerns with this patient. Prescription drug management Prescriptions will include symptomatic care Patient's prior external medical records from other ER visits were reviewed by me as indicated. Prior testing and results from previous visits were reviewed. Prior tests were taken into account with medical decision making and resource utilization, independent historian/historians were used to obtain complete medical history. I independently interpreted the test that were performed, results were reviewed by me and considered findings on radiology if ordered. Medical management and examination interpretation discussions were had by me with other qualified healthcare professionals as indicated for the patient's care. Problem List Problem List: (1) Acute cystitis (2) Hematuria (3) Lower abdominal pain DX & DISP Disposition: Discharge Departure Impression: Primary Impression: Lower abdominal pain Additional Impressions: Acute cystitis, Hematuria Condition: Stable Scripts Acetaminophen with Codeine (Acetaminophen-Cod #3 Tablet) 300 Mg-30 Mg Tablet 1 TAB PO Q6HPRN PRN for pain, #7 TAB 0 Refills Prov: KELLY CHRISTOPHER MD 08/10/24 Nitrofurantoin Monohyd/M-Cryst (Macrobid 100 mg Capsule) 100 Mg Capsule 1 CAP PO BID for 7 Days, #14 CAP 0 Refills Prov: KELLY CHRISTOPHER MD 08/10/24 Additional Instructions: Patient and the caregiver have been informed of all the diagnostic tests and the imaging conducted during the today's visit to the emergency room and has verbalized understanding of the results I have personally reviewed and interpreted all diagnostic exams performed here in the ER today as well as the vital signs documented by the nursing staff. The patient is now being discharged to home and should follow up with the primary care physician or the specialist as directed by the ER staff. Follow-up with primary care provider in 1 to 2 days. Take medications as dir ected here in the emergency room. Okay to continue home medications unless otherwise discussed during your visit in the emergency room today. Return to your nearest emergency room if symptoms worsen or if there is no improvement. Call 911 if you need immediate assistance. Take Tylenol or Motrin [id number] as needed and if no contraindications are present. Increase oral hydration. A wound culture or urine culture was ordered here in the emergency room department please follow-up with primary care provider and advise them to get repeat ports from our facility. If you had any John wrap/splints that were applied here, please do not remove them until you see your primary care or specialty. Referrals: ARABELLA RUVALCABA MD (PCP) KELLY CHRISTOPHER MD Aug 09, 2024 20:59
--- NOTE | 2024-08-09 21:13 | EKG ---
[facility] Test Date: 2024-08-09 Test Time: 21:11:06 Pat Name: SAHIL NORMAN Department: ED Room: Gender: F [employer] Project Manager: [id number] : 1950 Requested By: KELLY CHRISTOPHER Order Number: [id number] Reading MD: Fam Mercedes Measurements Intervals Palmer Rate: 98 P: 0 HI: 54 QRS: 157 QRSD: 162 T: -37 QT: 476 QTc: 608 Interpretive Statements Ventricular-paced complexes PVBs Compared to ECG 07/30/2024 11:56:59 No significant changes Electronically Signed On 08-13-2024 18:24:08 CDT by Fam Mercedes Please click the below link to view image of tracing.
[2024-08-09 21:34] LABS: BASOPHILS # (AUTO) 0.04 K/uL (0.00-0.20); BASOPHILS % (AUTO) 0.4 % (0.0-5.0); EOSINOPHILS # (AUTO) 0.11 K/uL (0.00-0.70); HEMATOCRIT 43.8 % (36-48); IMMATURE GRANULOCYTE ABSOLUTE 0.03 K/uL (0-1); LYMPHOCYTES # (AUTO) 1.6 K/uL (1.0-4.8); LYMPHOCYTES % (AUTO) 14.4 % (21.0-51.0); MEAN CORPUSCULAR HEMOGLOBIN 29.5 pg (27.0-33.0); MEAN CORPUSCULAR HGB CONC 30.8 g/dL (32.0-36.0); MEAN CORPUSCULAR VOLUME 95.6 fL (79-99); MONOCYTES # (AUTO) 0.6 K/uL (0.1-1.0); MONOCYTES % (AUTO) 5.6 % (3.0-13.0); NEUTROPHILS # (AUTO) 8.4 K/uL (1.8-7.7); NEUTROPHILS % (AUTO) 78.3 % (40.0-77.0); PLATELET COUNT (AUTO) 306 K/uL (130-400); RED BLOOD CELL COUNT(AUTO) 4.58 MIL/uL (4.00-5.50); RED CELL DISTRIBUTION WIDTH 16.1 % (11.0-15.5); WHITE BLOOD COUNT (AUTO) 10.7 K/uL (4.8-10.8)
[2024-08-09 21:43] LABS: CARBON DIOXIDE 33 mmol/L (21-32); CHLORIDE 101 mmol/L (101-111); CREATININE 1.3 mg/dL (0.5-1.0); GLOMERULAR FILTR. RATE CALC 43 mL/min (>90); GLUCOSE,RANDOM 179 mg/dL (70-105); POTASSIUM 3.4 mmol/L (3.5-5.1); SODIUM SERUM 141 mmol/L (136-145); UREA NITROGEN, BLOOD 14 mg/dL (7-18)
[2024-08-09 21:51] LABS: ALCOHOL, BLOOD < 3 mg/dL (0-10); CREATINE KINASE, TOTAL 98 U/L (21-232)
[2024-08-09 22:04] LABS: B-TYPE NATRIURETIC PEPTIDE 920 pg/mL (0-100)
[2024-08-09] MEDS: morPHINE 2 MG SYG IVP ONE (23:16)
[2024-08-10 00:05] VITALS: BP 112/84; PULSE 92; RESP 16; TEMP 98; O2SAT 99
[2024-08-10] MEDS ORDERED: NITR100C4 PO (00:07)
[2024-08-10] MEDS ORDERED: ACET-2079 PO (00:07)
== END 2024-08-10 00:26 | disposition home or self-care (01) ==
LOC: EDH 20:32
DX: N30.01 Acute cystitis with hematuria (principal); R10.30 Lower abdominal pain, unspecified; E03.9 Hypothyroidism, unspecified; E11.9 Type 2 diabetes mellitus without complications; M19.90 Unspecified osteoarthritis, unspecified site; Z79.01 Long term (current) use of anticoagulants; Z79.4 Long term (current) use of insulin; Z79.82 Long term (current) use of aspirin; Z79.84 Long term (current) use of oral hypoglycemic drugs; Z79.890 Hormone replacement therapy; Z79.899 Other long term (current) drug therapy; Z95.1 Presence of aortocoronary bypass graft; Z95.810 Presence of automatic (implantable) cardiac defibrillator
CPT/HCPCS: 99284; 96374; 82550; 84484; 80048; 83880; 85025; 36415; 93005; J2270

== ENCOUNTER 2024-11-22 17:01 | Inpatient (IN) | payer OTHER, MEDICARE ==
[~2024-11-22] VITALS: Ht 152.4 cm; Wt 51.9 kg
[~2024-11-22 17:01] MED LIST changes: +ACET-2079 PO; +NITR100C4 PO
--- NOTE | 2024-11-22 17:55 | ERN ---
General Chief Complaint: Wound Check Stated Complaint: WEAKNESS Time Seen by MD: 17:18 Time Seen by Midlevel: 17:18 Source: patient History of Present Illness Initial Comments Patient is a 74-year-old female being brought in by EMS for evaluation of generalized body weakness. The patient had a routine follow up in her doctor's office today where she was found to be hypotensive with a blood pressure in the 80s she was immediately referred to the ER for further evaluation. On arrival with the patient reports bilateral heel pain along with generalized body weakness but denies any other symptoms. Allergies: Coded Allergies: No Known Drug Allergies (Unverified Allergy, Unknown, 07/05/15) Home Meds Active Scripts Acetaminophen with Codeine (Acetaminophen-Cod #3 Tablet) 300 Mg-30 Mg Tablet, 1 TAB PO Q6HPRN PRN for pain, #7 TAB 0 Refills Prov:KELLY CHRISTOPHER MD 08/10/24 Nitrofurantoin Monohyd/M-Cryst (Macrobid 100 mg Capsule) 100 Mg Capsule, 1 CAP PO BID for 7 Days, #14 CAP 0 Refills Prov:KELLY CHRISTOPHER MD 08/10/24 Cefdinir (Cefdinir) 300 Mg Capsule, 1 CAP PO BID for uti for 10 Days, #20 CAP 0 Refills Prov:BRIAN SILVERIO MD 08/02/24 Furosemide (Furosemide) 40 Mg Tablet, 1 TAB PO DAILY for HEARTFAILURE for 30 Days, #30 TAB 0 Refills Prov:BRIAN SILVERIO MD 08/02/24 Furosemide (Furosemide) 20 Mg Tablet, 20 MG PO DAILYLUNCH for 30 Days, #30 TAB 0 Refills Prov:BRIAN SILVERIO MD 08/02/24 Reported Medications Alendronate Sodium (Alendronate Sodium) 35 Mg Tablet, 35 MG PO QWEEK, TAB 07/30/24 Metformin HCl (Metformin HCl) 500 Mg Tablet, 1 TAB PO BID for 30 Days, #60 TAB 0 Refills 07/30/24 Gabapentin (Gabapentin) 100 Mg Capsule, 100 MG PO TID, CAP 07/30/24 Loratadine (Loratadine) 10 Mg Tablet, 10 MG PO DAILY, TAB 07/30/24 Famotidine (Famotidine) 40 Mg Tablet, 1 TAB PO DAILY for 30 Days, #30 TAB 0 Refills 07/30/24 Ergocalciferol (Vitamin D2) (Vitamin D2) 1,250 Mcg (34253 Unit) Capsule, 1250 MCG PO QWEEK, CAP 07/30/24 Insuln Asp Prt/Insulin Aspart (Novolog Mix 70-30 Vial) 100 Unit/Ml (70-30) Vial, 10 UNIT SQ HS, VIAL 07/04/24 Insuln Asp Prt/Insulin Aspart (Novolog Mix 70-30 Vial) 100 Unit/Ml (70-30) Vial, 20 UNIT SQ DAILY, VIAL 07/04/24 Clonidine HCl (Catapress 0.2 mg Tab) 0.2 Mg Tablet, 1 TAB PO HS 07/04/24 Levothyroxine Sodium (Levothyroxine) 100 Mcg Capsule, 1 CAP PO DAILY for 30 Days, #30 CAP 0 Refills 07/04/24 Rivaroxaban (Xarelto) 10 Mg Tablet, 2.5 MG PO BID, TAB 07/04/24 Sacubitril/Valsartan (Entresto 49 mg-51 mg Tablet) 49 Mg-51 Mg Tablet, 1 TAB PO BID for 30 Days, #60 TAB 0 Refills 07/04/24 Aspirin (Aspirin EC) 81 Mg Tablet.dr, 1 TAB PO DAILY for 30 Days, #30 TAB 0 Refills 07/04/24 Dapagliflozin Propanediol (Farxiga) 10 Mg Tablet, 1 TAB PO DAILY for 30 Days, #30 TAB 0 Refills 07/04/24 Carvedilol (Carvedilol) 6.25 Mg Tablet, 6.25 MG PO BID, TAB 07/03/23 Simvastatin (Simvastatin) 40 Mg Tablet, 1 TAB PO HS 02/08/23 Past Medical History Past Medical History: CAD, Diabetes-Type II, Other Medical History Other: COLITIS Past Surgical History: CABG, Other Surgical History Other: TUBAL LIGATION Family History Family History: Negative Social History Social History: Negative Female( History) History: Not Applicable ROS Dictation CONSTITUTIONAL: Negative except for HPI HEAD/FACE: Negative except for HPI EENT: Negative except for HPI RESPIRATORY: Negative except for HPI GASTROINTESTINAL/ABDOMINAL: Negative except for HPI GENITOURINARY: Negative except for HPI MUSCULOSKELETAL: Negative except for HPI INTEGUMENTARY: Negative except for HPI NEUROLOGICAL/PSYCH: Negative except for HPI HEMATOLOGIC/LYMPHATIC: Negative except for HPI All Systems Negative, Except as noted above. 13 point review of systems assessed and all negative except for above. Physical Exam Physical Exam Dictation Vital Signs reviewed General Appearance: Alert, oriented x 3, no acute distress, obese, afebrile Head and Face: non-traumatic. Eyes: PERRL, pink conjunctivas, eyelid no trauma, anterior chamber with arcus senilis. Ears: Pinnas intact and no signs of trauma or erythema ear canals clear and no discharge TM no erythema Nose: No discharge, no bleeding. Oropharynx: Mouth normal, tongue pink, pharynx clear,no erythema, tonsils no exudates, no abscesses noted, mucous membrane moist Neck: Supple, non-tender, no thyromegaly, no masses, no JVD, no bruits Breast:Deferred Chest:No tenderness, no crepitus, no paradoxical movement, no retractions Lungs:Clear, well-ventilated, symmetric, no rales, no wheezing, no rhonchi, no stridor, good breath sounds bilaterally Heart: Regular rate, regular rhythm, no murmur, no gallops Vascular: There is what appears to be lymphedema to the right upper extremity Abdomen: Soft, positive bowel sounds, nondistended, no guarding, nontender, no rebound, no masses no hepatomegaly, no splenomegaly, no Malcolm's sign, no hernias. Rectal: Deferred Genital: Deferred Neurological: Normal speech, motor function intact, sensory function intact Musculoskeletal: Neck nontender, full range of motion, back nontender, full range of motion, Extremities: nontender, full range of motion Skin: There was a large circular area of necrosis to bilateral heels Lymphatic: Deferred Results Laboratory and Microbiology Lab and Micro Result Laboratory Tests Test 11/22/24 17:46 11/22/24 19:19 11/22/24 20:35 White Blood Count 7.3 K/uL (4.8-10.8) Red Blood Count 3.19 MIL/uL (4.00-5.50) L Hemoglobin 8.6 g/dL (12.0-16.0) L Hematocrit 28.8 % (36-48) L Mean Corpuscular Volume 90.3 fL (79-99) Mean Corpuscular Hemoglobin 27.0 pg (27.0-33.0) Mean Corpuscular Hemoglobin Concent 29.9 g/dL (32.0-36.0) L Red Cell Distribution Width 19.8 % (11.0-15.5) H Platelet Count 273 K/uL (130-400) Mean Platelet Volume 11.7 fL (7.5-10.5) H Immature Granulocyte % (Auto) 0.3 % (0-1) Neutrophils (%) (Auto) 67.2 % (40.0-77.0) Lymphocytes (%) (Auto) 24.2 % (21.0-51.0) Monocytes (%) (Auto) 5.6 % (3.0-13.0) Eosinophils (%) (Auto) 2.2 % (0.0-8.0) Basophils (%) (Auto) 0.5 % (0.0-5.0) Neutrophils # (Auto) 4.9 K/uL (1.8-7.7) Lymphocytes # (Auto) 1.8 K/uL (1.0-4.8) Monocytes # (Auto) 0.4 K/uL (0.1-1.0) Eosinophils # (Auto) 0.16 K/uL (0.00-0.70) Basophils # (Auto) 0.04 K/uL (0.00-0.20) Absolute Immature Granulocyte (auto 0.02 K/uL (0-1) Nucleated Red Blood Cells 0.0 % (0.0-0.19) Red Blood Cell Morphology See comments Erythrocyte Sedimentation Rate 18 MM/HR (0-30) Sodium Level 141 mmol/L (136-145) Potassium Level 3.0 mmol/L (3.5-5.1) *L Chloride Level 105 mmol/L (101-111) Carbon Dioxide Level 30 mmol/L (21-32) Blood Urea Nitrogen 14 mg/dL (7-18) Creatinine 1.1 mg/dL (0.5-1.0) H Glomerular Filtration Rate Calc 52 mL/min (>90) Random Glucose 51 mg/dL (70-105) L Lactic Acid Level 3.1 mmol/L (0.8-2.5) H Total Calcium 7.1 mg/dL (8.5-10.1) L Magnesium Level 1.20 mg/dL (1.80-2.40) L Total Creatine Kinase 175 U/L (21-232) # Troponin I High Sensitivity 65 ng/L (4-50) *H Whole Blood Glucose 34 MG/DL (70-110) *L 89 MG/DL (70-110) # Bedside Glucose Comment Protocol Initiated Labs Reviewed?: Yes MDM MDM: Differential diagnosis: Sepsis, dehydration, electrolyte abnormality, urinary tract infection Rationale: Tests considered and ordered secondary to shared decision making include: Previous outside records reviewed: Old ER visits. Risk of complication and/or morbidity or mortality of patient management: None Medications-Per medication reconciliation Need for hospitalization: Patient does meet criteria for hospitalization. Need for emergency major/minor surgery: No There are no social concerns with this patient. Prescription drug management Prescriptions will include symptomatic care Patient's prior external medical records from other ER visits were reviewed by me as indicated. Prior testing and results from previous visits were reviewed. Prior tests were taken into account with medical decision making and resource utilization, independent historian/historians were used to obtain complete medical history. I independently interpreted the test that were performed, results were reviewed by me and considered findings on radiology if ordered. Medical management and examination interpretation discussions were had by me with other qualified healthcare professionals as indicated for the patient's care. ED Course Orders Procedure Category Date Status Time 12 Lead Ekg Tracing- EKG 11/22/24 Logged Technical 17:27 Basic Metabolic Panel LAB 11/22/24 Complete 17:27 Blood Cult NATHAN 11/22/24 In Process 17:27 Cbc With Differential LAB 11/22/24 Complete 17:27 Erythrocyte LAB 11/22/24 Complete Sedimentation Rate 17:27 Magnesium LAB 11/22/24 Complete 17:27 Urinalysis Profile LAB 11/22/24 Logged 17:27 Troponin I High LAB 11/22/24 Complete Sensitivity 17:27 Chest 1vw RAD 11/22/24 Resulted 17:27 Creatine Kinase, Total LAB 11/22/24 Complete 17:27 Lactic Acid LAB 11/22/24 Complete 17:27 Foot Comp 3+Vws Lt RAD 11/22/24 Resulted 17:27 Foot Comp 3+Vws Rt RAD 11/22/24 Resulted 17:27 0.9%Nacl 1000ml (Ns PHA 11/22/24 Complete 1000ml) 18:00 Aspirin 325mg Tab PHA 11/22/24 Complete (Aspirin 325mg Tab) 19:00 Magnesium Oxide PHA 11/22/24 Complete (Mag-Ox) 19:00 Potassium Bicarb/Cit PHA 11/22/24 Complete Ac 25meq (K-Lyte Ta 19:00 Vancomycin Protocol PHA 11/22/24 In Process (Vancomycin Protocol 19:00 Cefepime Hcl 1 Gm PHA 11/22/24 Complete Vial (Maxipime 1 Gm Vi 19:00 12 Lead Ekg Tracing- EKG 11/22/24 Logged Technical 18:36 Vancomycin 1.25 PHA 11/22/24 Complete Gm/250 Ml Bag 19:00 Vancomycin 1g/250ml PHA 11/23/24 In Process Kit (Vancomycin 1g/2 20:00 Vancomycin Trough LAB 11/25/24 Verified 19:00 Dextrose 50%-Water PHA 11/22/24 Complete (D50w) 19:30 Dextrose 50%-Water PHA 11/22/24 Complete (D50w) 19:21 Current Medications Medications (Trade) Dose Ordered Sig/Sigrid Route PRN Reason Start Time Stop Time Status Last Admin Dose Admin Aspirin (Aspirin 325mg Tab) 325 mg ONCE ONCE PO 11/22/24 19:00 11/22/24 19:01 DC 11/22/24 19:35 Cefepime HCl (MAXipime 1 GM vial) 1 gm ONCE ONCE IVPB 11/22/24 19:00 11/22/24 19:01 DC 11/22/24 19:35 Dextrose (D50w) 50 ml ONCE ONCE IV 11/22/24 19:30 11/22/24 19:31 DC 11/22/24 19:23 Dextrose (D50w) 50 ml STK-MED ONCE IV 11/22/24 19:21 11/22/24 19:22 DC Magnesium Oxide (Mag-Ox) 400 mg ONCE ONCE PO 11/22/24 19:00 11/22/24 19:01 DC 11/22/24 19:34 Potassium Bicarbonate (K-Lyte Tablet Eff 25 Meq Tablet.eff) 50 meq ONCE ONCE PO 11/22/24 19:00 11/22/24 19:01 DC 11/22/24 19:34 Sodium Chloride 1,000 ml @ 0 mls/hr ONCE ONCE IV 11/22/24 18:00 11/22/24 18:01 DC 11/22/24 19:35 Vancomycin HCl 250 ml @ 125 mls/hr ONCE ONCE IV 11/22/24 19:00 11/22/24 20:59 DC 11/22/24 19:58 Vancomycin HCl 250 ml @ 125 mls/hr Q24H IV 11/23/24 20:00 12/03/24 19:59 Vancomycin HCl (Vancomycin Protocol) 1 each AD IV 11/22/24 19:00 12/06/24 18:59 Vital Signs Date Time Temp Pulse Resp B/P (MAP) Pulse Ox O2 Delivery O2 Flow Rate FiO2 11/22/24 20:31 98.1 67 18 101/50 96 Room Air* 0 21 11/22/24 17:28 98.1 65 16 83/47 97 Room Air 0 [facility] [address] [id number] IMAGING REPORT Signed PATIENT: SAHIL NORMAN MR#: [id number] : 1950 SEX: F AGE: 74 LOCATION: [facility] ORDER 29 STATUS: [facility] REPORT#: [id number] SERVICE 26 REASON: weakness ORDERING PHYSICIAN: CAROLINE DANG PROCEDURE: FT 3VW RT - FOOT COMP 3+VWS RT FOOT COMP 3+VWS RT HISTORY: Weakness COMPARISON: None TECHNIQUE: 3 images of the right foot were obtained. FINDINGS: Vascular calcifications are seen. There is no acute displaced fracture or dislocation. Degenerative changes are seen. IMPRESSION: 1. Findings as described above. DICTATED BY: ANDREAS JERRY MD DATE: 11/22/242030 ELECTRONICALLY SIGNED BY: ANDREAS JERRY MD DATE: 11/22/242035 [place] [id number] [id number] IMAGING REPORT Signed PATIENT: SAHIL NORMAN MR#: [id number] : 1950 SEX: F AGE: 74 LOCATION: [facility] ORDER 29 [facility]US: [facility] REPORT#: [id number] SERVICE 26 REASON: weakness ORDERING PHYSICIAN: CAROILNE DANG PROCEDURE: FT 3VW LT - FOOT COMP 3+VWS LT FOOT COMP 3+VWS LT HISTORY: Weakness COMPARISON: None TECHNIQUE: 3 images of the left foot were obtained. FINDINGS: There is no acute displaced fracture or dislocation. Vascular calcifications are seen. Degenerative changes are seen. IMPRESSION: 1. Findings as described above. DICTATED BY: ANDREAS JERRY MD DATE: 11/22/242035 ELECTRONICALLY SIGNED BY: ANDREAS JERRY MD DATE: 11/22/242039 [place] [address] [place] [id number] IMAGING REPORT Signed PATIENT: SAHIL NORMAN MR#: [id number] : 1950 SEX: F AGE: 74 LOCATION: [facility] ORDER 29 STATUS: REG ER REPORT#: [id number] SERVICE 26 REASON: weakness ORDERING PHYSICIAN: CAROLINE DANG PROCEDURE: CXR1VW - CHEST 1VW CHEST 1VW HISTORY: Weakness COMPARISON: 08/01/2024 FINDINGS: A frontal projection of the chest was obtained. Mild bilateral pulmonary infiltrates are seen may be related to mild pulmonary vascular congestion with possible superimposed pneumonitis. Poststernotomy changes are seen. The heart is enlarged. Degenerative changes of the thoracolumbar spine are present. Pacemaker is seen entering from the left. No evidence of aortic calcification is seen. IMPRESSION: 1. Mild bilateral pulmonary infiltrates are seen may be related to mild pulmonary vascular congestion with possible superimposed pneumonitis. DICTATED BY: ANDREAS JERRY MD DATE: 11/22/242056 ELECTRONICALLY SIGNED BY: ANDREAS JERRY MD DATE: 11/22/242101 DX & DISP Disposition: Inpatient Decision to Admit Date: Nov 22, 2024 Departure Impression: Primary Impression: Decubitus ulcer of both feet Additional Impressions: Chronic anemia, Hypokalemia, Hypoglycemia, Elevated lactic acid level, Elevated troponin, Hypomagnesemia Condition: Stable Referrals: ARABELLA RUVALCABA MD (PCP) I have reviewed the case, and I agree with, Diagnosis and Plan I performed the substantive portion of the visit. I have reviewed and personally made and approve the management plan that is documented in the note by myself or the TOM. I acknowledge for responsibility for the patient's management plan. CAROLINE DANG Nov 22, 2024 17:55
[2024-11-22 18:02] LABS: BASOPHILS # (AUTO) 0.04 K/uL (0.00-0.20); BASOPHILS % (AUTO) 0.5 % (0.0-5.0); EOSINOPHILS # (AUTO) 0.16 K/uL (0.00-0.70); EOSINOPHILS % (AUTO) 2.2 % (0.0-8.0); HEMATOCRIT 28.8 % (36-48); IMMATURE GRANULOCYTE ABSOLUTE 0.02 K/uL (0-1); LYMPHOCYTES # (AUTO) 1.8 K/uL (1.0-4.8); LYMPHOCYTES % (AUTO) 24.2 % (21.0-51.0); MEAN CORPUSCULAR HGB CONC 29.9 g/dL (32.0-36.0); MEAN CORPUSCULAR VOLUME 90.3 fL (79-99); MONOCYTES # (AUTO) 0.4 K/uL (0.1-1.0); MONOCYTES % (AUTO) 5.6 % (3.0-13.0); NEUTROPHILS # (AUTO) 4.9 K/uL (1.8-7.7); NEUTROPHILS % (AUTO) 67.2 % (40.0-77.0); PLATELET COUNT (AUTO) 273 K/uL (130-400); RED BLOOD CELL COUNT(AUTO) 3.19 MIL/uL (4.00-5.50); RED CELL DISTRIBUTION WIDTH 19.8 % (11.0-15.5); WHITE BLOOD COUNT (AUTO) 7.3 K/uL (4.8-10.8)
[2024-11-22 18:28] LABS: CREATININE 1.1 mg/dL (0.5-1.0); MAGNESIUM 1.2 mg/dL (1.80-2.40)
[2024-11-22] MEDS ORDERED: VANCOMYCIN PROTOCOL PER PHARMACY IV SCH (19:00)
[2024-11-22 19:05] LABS: ERYTHROCYTE SEDIMENTATION RATE 18 MM/HR (0-30)
[2024-11-22] MEDS: DEXTROSE 50%-WATER 50 ML DISP.SYRIN IV ONE ×2 (19:23)
[2024-11-22] MEDS: MAGNESIUM OXIDE 400 MG TABLET PO ONE (19:34)
[2024-11-22] MEDS: PoTASSium BIcarbonate/CIT AC 25 MEQ TABLET.EFF PO ONE (19:34)
[2024-11-22] MEDS: ASPIRIN 325MG TAB PO ONE (19:35)
[2024-11-22] MEDS: 0.9%NACL 1000ML 1,000 ML IV ONE (19:35)
[2024-11-22] MEDS: ceFEPime HCL 1 GM VIAL IVPB ONE (19:35)
[2024-11-22] MEDS: VANCOMYCIN 1.25 GM/250 ML BAG 250 ML IV ONE (19:58)
--- NOTE | 2024-11-22 20:36 | HMCIMG ---
FOOT COMP 3+VWS RT HISTORY: Weakness COMPARISON: None TECHNIQUE: 3 images of the right foot were obtained. FINDINGS: Vascular calcifications are seen. There is no acute displaced fracture or dislocation. Degenerative changes are seen. IMPRESSION: 1. Findings as described above.
--- NOTE | 2024-11-22 20:40 | HMCIMG ---
FOOT COMP 3+VWS LT HISTORY: Weakness COMPARISON: None TECHNIQUE: 3 images of the left foot were obtained. FINDINGS: There is no acute displaced fracture or dislocation. Vascular calcifications are seen. Degenerative changes are seen. IMPRESSION: 1. Findings as described above.
--- NOTE | 2024-11-22 21:02 | HMCIMG ---
CHEST 1VW HISTORY: Weakness COMPARISON: 08/01/2024 FINDINGS: A frontal projection of the chest was obtained. Mild bilateral pulmonary infiltrates are seen may be related to mild pulmonary vascular congestion with possible superimposed pneumonitis. Poststernotomy changes are seen. The heart is enlarged. Degenerative changes of the thoracolumbar spine are present. Pacemaker is seen entering from the left. No evidence of aortic calcification is seen. IMPRESSION: 1. Mild bilateral pulmonary infiltrates are seen may be related to mild pulmonary vascular congestion with possible superimposed pneumonitis.
--- NOTE | 2024-11-22 22:10 | HP ---
[facility] Date of Service: Nov 22, 2024 Time of Service: 21:43 PCP:Myra Jones HISTORY OF PRESENT ILLNESS: This is a 74-year-old, Burkinan-speaking female with past medical history of CHF, GERD, Diabetes type 2, peripheral neuropathy, hyperlipidemia, hypertension, advanced cardiomyopathy with AICD, Coronary artery disease, hypothyroidism, arthritis and cholelithiasis who was brought by EMS to the ED for evaluation of generalized body weakness.Apparently patient was at the PCP clinic today for a routine check up and she was found to be hypotensive ,SBP was reportedly in the 80.s and reason patient was sent to this facility.Upon ER arrival patient V/S temperature 98.1, heart rate 65 blood pressure 83/47 saturation 97% on room air.blood sugar was 34 and patient was given D50 1 amp.On further examination patient has bilateral necrotic wound ulcers to both heels which has been there for 5 months already she said and it is getting worse tot he point that she is having difficulty walking she said.Patient also has right arm lymphedema and she said thats been on going for awhile now.Patient is on Metformin and insulin. Labs were drawn CBC result revealed hemoglobin 8.6, hematocrit 28.8, platelet count 273. Sodium 141, potassium three, creatinine 1.1, GFR 52 random glucose 51, lactic acid 3.1, total calcium 7.1 magnesium 1.2 troponin 65. Right foot x- ray result revealed vascular calcifications are seen there is no acute displaced fracture or dislocation. Degenerative changes are seen. Left foot x-ray result revealed there is no acute displaced fracture or dislocation vascular calcifications are seen. Degenerative changes are seen. Chest x-ray result revealed mild bilateral pulmonary infiltrates are seen may be related to mild pulmonary vascular congestion with possible superimposed pneumonitis. Seen and examined patient in the ER awake alert and coherent. Patient denies f ever, chills, nausea, vomiting, cough, chest pain, palpitation and shortness of breaths. Latest vital signs temperature 98.1, heart rate 67, blood pressure 101/50 saturation 96% on room air.While in the ED patient received 1L NS bolus,Aspirin 325 mg po,Magnesium 400 mg po,Potassium replacement,Vanco IV and Cefepime 1 gram IV.Will admit patient for further medical management. REVIEW OF SYSTEMS CONSTITUTIONAL: Denies fevers, chills, or night sweats. No unintentional weight loss reported. NEUROLOGICAL: Denies headache, amaurosis fugax, motor weakness, sensory defici t, vertigo/spinning sensation, gait abnormalities, or tremors. ENT: No hearing loss, otalgia, otorrhea, rhinitis, rhinorrhea, hoarseness, or sore throat. CARDIOVASCULAR: Denies any exertional angina, dyspnea on exertion, orthopnea, paroxysmal nocturnal dyspnea, palpitations, life-threatening arrhythmias, claudication. PULMONARY: Denies any shortness of breath, cough, phlegm/sputum, hemoptysis, pleuritic chest pain. SLEEP: Denies morning headaches, daytime somnolence or napping. Denies difficulty falling asleep, staying asleep, waking from sleep. Denies knowledge of snoring. GASTROINTESTINAL: Denies any type of dysphagia to either liquids or solids. Denies nausea, vomiting, pyrosis, early satiety, abdominal pain, diarrhea, constipation, or changes in stool consistency or caliber. Denies coffee-ground emesis, hematemesis, hematochezia, or melanotic stools. GENITOURINARY: Denies frequency, urgency, nocturia, hematuria or incontinence (Storage/Irritative symptoms.) Low urinary stream, straining to void, urinary intermittency or hesitancy, splitting of the voiding stream, terminal dribbling. ENDOCRINOLOGIC: Denies polyuria, polydipsia, polyphagia or heat/cold intolerances. HEMATOLOGIC: Denies thrombophilia/previous clots, or coagulopathy/bleeding disorders. ONCOLOGIC: Denies personal history of malignancy. DERMATOLOGIC: Denies rashes or pruritus. PSYCHIATRIC: Denies any suicidal or homicidal ideation. Denies hallucinations. PAST MEDICAL HISTORY: [CHF, GERD, Diabetes type 2, peripheral neuropathy, hyperlipidemia, hypertension, advanced cardiomyopathy, Coronary artery disease, hypothyroidism, arthritis and cholelithiasis ] PAST SURGICAL HISTORY: [AICD placement, CABG x4 in 2008 , bilateral tubal ligation] PAST SOCIAL HISTORY: [ Patient is lives with son. Patient denies alcohol tobacco and recreational drug use] FAMILY HISTORY: [ Hypertension, diabetes and cardiovascular disease ] Coded Allergies: No Known Drug Allergies (Unverified Allergy, Unknown, 07/05/15) PHYSICAL EXAM GENERAL APPEARANCE: The patient is awake, alert, and oriented, in no acute cardiopulmonary distress. NEUROLOGICAL: Cranial nerves II-XII grossly intact. Motor is 5/5 in bilateral upper and lower extremities proximal to distal. No sensory deficits. HEENT: Face is symmetric. Pupils are equal and reactive. Extraocular movements are intact. NECK: Supple. No JVD. No thyromegaly. No submental, submandibular, pre- /postauricular, occipital or supraclavicular lymphadenopathy. CHEST: Normal chest expansion. No Telemetry. LUNGS: Absence of any rales, rhonchi or any wheezing. CARDIOVASCULAR: Regular. S1 and S2 normal. No appreciable rubs, murmurs or gallops. ABDOMEN: Soft, nontender, and nondistended. There is no rebound, voluntary guarding, or rigidity. : Deferred. No Velazquez. EXTREMITIES: Right upper extremity edema SKIN: Bilateral heel necrotic ulcers . Vital Sign (Last 24 Hours) 11/22/24 20:31 Temp 98.1 Pulse 67 Resp 18 B/P (MAP) 101/50 Pulse Ox 96 O2 Delivery Room Air* O2 Flow Rate 0 FiO2 21 LABS: Laboratory: Test 11/22/24 20:35 11/22/24 19:19 11/22/24 17:46 Range/Units Whole Blood Glucose 89 # 70-110 MG/DL Bedside Glucose Comment Protocol Initiated White Blood Count 7.3 4.8-10.8 K/uL Red Blood Count 3.19 L 4.00-5.50 MIL/uL Hemoglobin 8.6 L 12.0-16.0 g/dL Hematocrit 28.8 L 36-48 % Mean Corpuscular Volume 90.3 79-99 fL Mean Corpuscular Hemoglobin 27.0 27.0-33.0 pg Mean Corpuscular Hemoglobin Concent 29.9 L 32.0-36.0 g/dL Red Cell Distribution Width 19.8 H 11.0-15.5 % Platelet Count 273 130-400 K/uL Mean Platelet Volume 11.7 H 7.5-10.5 fL Immature Granulocyte % (Auto) 0.3 0-1 % Neutrophils (%) (Auto) 67.2 40.0-77.0 % Lymphocytes (%) (Auto) 24.2 21.0-51.0 % Monocytes (%) (Auto) 5.6 3.0-13.0 % Eosinophils (%) (Auto) 2.2 0.0-8.0 % Basophils (%) (Auto) 0.5 0.0-5.0 % Neutrophils # (Auto) 4.9 1.8-7.7 K/uL Lymphocytes # (Auto) 1.8 1.0-4.8 K/uL Monocytes # (Auto) 0.4 0.1-1.0 K/uL Eosinophils # (Auto) 0.16 0.00-0.70 K/uL Basophils # (Auto) 0.04 0.00-0.20 K/uL Absolute Immature Granulocyte (auto 0.02 0-1 K/uL Nucleated Red Blood Cells 0.0 0.0-0.19 % Red Blood Cell Morphology See comments Erythrocyte Sedimentation Rate 18 0-30 MM/HR Sodium Level 141 136-145 mmol/L Potassium Level 3.0 *L 3.5-5.1 mmol/L Chloride Level 105 101-111 mmol/L Carbon Dioxide Level 30 21-32 mmol/L Blood Urea Nitrogen 14 7-18 mg/dL Creatinine 1.1 H 0.5-1.0 mg/dL Glomerular Filtration Rate Calc 52 >90 mL/min Random Glucose 51 L 70-105 mg/dL Lactic Acid Level 3.1 H 0.8-2.5 mmol/L Total Calcium 7.1 L 8.5-10.1 mg/dL Magnesium Level 1.20 L 1.80-2.40 mg/dL Total Creatine Kinase 175 # 21-232 U/L Troponin I High Sensitivity 65 *H 4-50 ng/L Current Medications Medications (Trade) Dose Ordered Sig/Sigrid Route PRN Reason Start Time Stop Time Status Last Admin Dose Admin Vancomycin HCl 250 ml @ 125 mls/hr Q24H IV 11/23/24 20:00 12/03/24 19:59 Vancomycin HCl (Vancomycin Protocol) 1 each AD IV 11/22/24 19:00 12/06/24 18:59 DIAGNOSTICS / RADIOLOGY: [ ] ASSESSMENT: Transient hypotension POA Hypoglycemia POA Elevated troponin POA Bilateral heel necrotic ulcers Acute anemia POA Electrolyte derangement POA Chronic kidney disease POA Diabetes POA Hypothyroidism POA Hyperlipidemia POA CHF POA Peripheral vascular disease POA Right upper extremity lymphedemaPOA PLAN: We will admit patient in medical telemetry We will start consistent carb diet We will continue vancomycin and cefepime IV for broad-spectrum coverage We will continue home dose aspirin 81 mg p.o. daily and home dose levothyroxine and home dose atorvastatin We will start famotidine 20 mg p.o. daily for GI prophylaxis We will replace electrolytes as needed per protocol We will request for glucometer Q 2 hours x3 with hypoglycemia protocol We will add prn medication for fever,pain,cough , nausea and vomiting We will seek podiatry consultation We will seek Cardiology consultation We will reconcile home meds once medlist available We will request labs in am Further orders to follow depending on above results Case discussed with attending physician and came up with above treatment and plan of care. ADVANCED CARE PLANNING 1. Which of the following were discussed? Hospice Care - No Therapeutic options - Yes Advance Directives - No Other discussions - 2. Discussed with who? Patient 3. Voluntary nature of this service was explained to the patient? Yes 4. Amount of time spent - __25 5. Reviewed by Physician? (if this service was performed by NPP) Yes Patient seen and examined by me. Agree with note by CAGE SUPERVISOR SEE ADDITIONAL ORDERS PER CHART DISCUSSED WITH NURSING STAFF RUBIA IRWIN PLANER OFF BEARER Nov 22, 2024 22:10
[2024-11-22] MEDS ORDERED: acetaMINOPHEN 325 MG TAB PO PRN ×2 (22:30)
[2024-11-22] MEDS ORDERED: VANCOMYCIN 1G/250ML KIT 250 ML IV SCH (22:30)
[2024-11-22] MEDS: ceFEPime HCL 1 GM VIAL IVPB SCH (22:30)
[2024-11-22] MEDS ORDERED: PoTASSium chloRIDE 20MEQ/100ML 100 ML IV PRN (22:30)
[2024-11-22] MEDS ORDERED: PoTASSium chl 10% ELIXIR 20MEQ 20 MEQ/15 ML UDCUP PO PRN (22:30)
[2024-11-22] MEDS ORDERED: ondanSETRON 4MG INJ IV PRN (22:30)
[2024-11-22] MEDS ORDERED: GLUCAGON 1MG KIT 1 MG ML IM PRN (22:30)
--- NOTE | 2024-11-22 22:34 | NUR ---
PATIENT DID NOT BRING HOME MEDICATIONS
[2024-11-22] MEDS: DEXTROSE 50%-WATER 50 ML DISP.SYRIN IV PRN (23:18)
[2024-11-23] VITALS (8 sets, daily range): BP systolic 108–139; BP diastolic 49–63; PULSE 76–107; RESP 16–20; TEMP 97.8–98.8; O2SAT 98–100
--- NOTE | 2024-11-23 00:05 | NUR ---
arrival patient alert and oriented times 3. plan of care discussed with her and she verbalized understanding. patient does not walk. she moves around in bed on her sides. she has been having green semi-formed stools tonight incontinently. she is voiding on a brief as well. she has no pain. she has bilateral heel ulcers and left great toe ulcer. pictures taken via ipad. we offload her feet with pillows. she drank orange and apple juice for her blood sugar of 86. she has been sleeping tonight about 3 hours intermittently. door open, call light within reach, bed alarm on, 2 side rails up. will continue to monitor patient. she called chandrakant mya, daughter, to ask her to bring in the home medications. she will bring them in the am.
--- NOTE | 2024-11-23 00:24 | NUR ---
home meds patient is going to ask chandrakant roque to bring the home medications
[2024-11-23] MEDS: PoTASSium chloRIDE 20MEQ ER 20 MEQ ERTAB PO PRN (01:06)
[2024-11-23] MEDS: MAGNESIUM 2GM PREMIX 50ML 50 ML IV PRN (01:06)
[2024-11-23 01:09] LABS: ADD UA MICROSCOPIC YES; APPEARANCE,URINE CLOUDY (CLEAR); BILIRUBIN,URINE NEGATIVE (NEGATIVE); COLOR,URINE YELLOW (YELLOW); GLUCOSE, URINE (UA) >=1000 mg/dL (NEGATIVE); KETONES,URINE NEGATIVE (NEGATIVE); LEUKOCYTE ESTERASE ,URINE 500 Leu/uL (NEGATIVE); NITRATE,URINE NEGATIVE (NEGATIVE); OCCULT BLOOD,URINE SMALL (NEGATIVE); PROTEIN,URINE 50 mg/dL (NEGATIVE); UROBILINOGEN,URINE 0.2 mg/dL (0.2-1.0)
[2024-11-23 01:15] LABS: BACTERIA,URINE FEW /HPF (None Seen); MUCUS,URINE RARE LPF (None Seen); RBC,URINE 51-100 /HPF (0-1); SQUAMOUS EPITHELIAL CELL,UR FEW /HPF (0-2)
[2024-11-23 04:22] LABS: BASOPHILS # (AUTO) 0.04 K/uL (0.00-0.20); BASOPHILS % (AUTO) 0.6 % (0.0-5.0); EOSINOPHILS # (AUTO) 0.15 K/uL (0.00-0.70); EOSINOPHILS % (AUTO) 2.3 % (0.0-8.0); HEMATOCRIT 30.8 % (36-48); IMMATURE GRANULOCYTE ABSOLUTE 0.02 K/uL (0-1); LYMPHOCYTES # (AUTO) 1.3 K/uL (1.0-4.8); LYMPHOCYTES % (AUTO) 20.2 % (21.0-51.0); MEAN CORPUSCULAR HGB CONC 29.9 g/dL (32.0-36.0); MEAN CORPUSCULAR VOLUME 90.3 fL (79-99); MONOCYTES # (AUTO) 0.4 K/uL (0.1-1.0); MONOCYTES % (AUTO) 5.9 % (3.0-13.0); NEUTROPHILS # (AUTO) 4.7 K/uL (1.8-7.7); NEUTROPHILS % (AUTO) 70.7 % (40.0-77.0); PLATELET COUNT (AUTO) 252 K/uL (130-400); RED BLOOD CELL COUNT(AUTO) 3.41 MIL/uL (4.00-5.50); RED CELL DISTRIBUTION WIDTH 19.9 % (11.0-15.5); WHITE BLOOD COUNT (AUTO) 6.7 K/uL (4.8-10.8)
[2024-11-23 04:47] LABS: HEMOGLOBIN A1C 8.6 % (4.0-6.0)
[2024-11-23 04:58] LABS: ALBUMIN 1.7 g/dL (3.5-5.0); BILIRUBIN,TOTAL 0.5 mg/dL (0.2-1.0); MAGNESIUM 1.2 mg/dL (1.80-2.40); POTASSIUM 3.5 mmol/L (3.5-5.1); THYROID STIMULATING HORMONE 22.63 uIU/mL (0.36-3.74); TOTAL PROTEIN, SERUM 5.6 g/dL (6.0-8.3)
[2024-11-23] MEDS: levoTHYROxine 100 MCG TABLET PO SCH (05:21)
[2024-11-23] MEDS: levoTHYROxine 100 MCG TABLET ONE (05:29)
--- NOTE | 2024-11-23 06:28 | EKG ---
[facility] Test Date: 2024-11-22 Test Time: 19:23:59 Pat Name: SAHIL NORMAN Department: [facility] Room: 303 1 Gender: F Pens [employer] Pencils Dipper: [id number] : 1950 Requested By: CAROLINE DANG Order Number: [id number] Reading MD: Malcom Camilo Measurements Intervals Cora Rate: 75 P: 0 IN: 0 QRS: 6 QRSD: 135 T: 180 QT: 456 QTc: 511 Interpretive Statements Atrial fibrillation Paired ventricular premature complexes Left bundle branch block Compared to ECG 08/09/2024 21:11:06 Ventricular premature complex(es) now present Left bundle-branch block now present Ventricular-paced complex(es) or rhythm no longer present Electronically Signed On 11-24-2024 10:20:27 CDT by Malcom Camilo Please click the below link to view image of tracing.
--- NOTE | 2024-11-23 06:28 | EKG ---
[facility] Test Date: 2024-11-22 Test Time: 17:45:18 Pat Name: SAHIL NORMAN Department: [facility] Room: 303 1 Gender: F Foreign Correspondent: [id number] : 1950 Requested By: CAROLINE DANG Order Number: [id number] Reading MD: Malcom Camilo Measurements Intervals [place] Rate: 90 P: 133 MI: 103 QRS: 47 QRSD: 116 T: 164 QT: 455 QTc: 558 Interpretive Statements Ventricular-paced complexeswith PVC's Biventricular paced rhythm Compared to ECG 08/09/2024 21:11:06 No significant changes Electronically Signed On 11-24-2024 10:20:09 CDT by Malcom Camilo Please click the below link to view image of tracing.
--- NOTE | 2024-11-23 07:14 | NUR ---
podiatry let dr. thorpe know about the consult today. he is aware. he will come today.
[2024-11-23] MEDS: FAMOTIDINE 20MG TAB PO SCH (09:41)
[2024-11-23] MEDS: ASPIRIN 81 MG EC TAB PO SCH (09:41)
--- NOTE | 2024-11-23 10:08 | NUR ---
DCP: HOME Pt currently lives with her son Gustavo Motley [phone]. Pt does not report insecurities with food, jail, and/or utilities. Pt has a wheelchair that she uses at home. Pt does not have any home health or provider services. Pt states that when completing ADLs she has someone close by in case she needs assistance. PCP is Dr. Robert Renteria and uses [facility] for any RX needs. At [place] pt will want to go home and family can assist with transportation. Addendum: 11/23/24 at 1011 by NERI DUNNE SS Amended: Links added.
--- NOTE | 2024-11-23 11:43 | CONS ---
[facility] CARDIOLOGY CONSULTATION NOTE Date Patient Seen: Nov 23, 2024 Time of Visit: 11:26 Reason for Consultation: Hypotension ] History of Present Illness: [74-year-old female patient that follows up in Cardiology Clinic with Dr. Wu, Patient has a long history of severe two-vessel CAD on a 2006 cath with a EF of 10 to 15%. She had four-vessel CABG in 2007. 2016 angiogram revealed 4/4 patent grafts. She has known cardiomyopathy with an ICD. 2018 EF was 30 to 35% status post ICD placement. Last echo in July 2024 with systolic recovery, EF 50- 55%. 2022 carotid Doppler showed 50 to 70% stenosis in the R ICA. Previously had chronically occluded bilateral SFAs documented with single-vessel runoff via diseased RASHI's in January 2024. She is maintained on PAD dose Xarelto and aspirin, who was brought by EMS to the ED for evaluation of generalized body weakness.Apparently patient was at the PCP clinic yesterday for a routine check up and she was found to be hypotensive, noted with capillary glucose at 34. On our evaluation at the bedside, the patient is endorsing positional dizziness, troponin weakly elevated with a flattened trend (65, 64 peaked at 69). Of note the patient was recently transitioned to Entresto 24/26 mg and Toprol-XL for GDMT optimization, and as per patient's daughter she has noticed her blood pressure progressively lower for the past two weeks. The patient has a prior 2D echocardiogram from 07/04/2024 that showed LVEF 50-55%, moderately dilated left atrium. Cardiology was consulted for hypotension Past Medical History: [Refer to chart ] Past Surgical History: [ Refer to HPI] Family History: [ Refer to HPI Social History: [ Refer to HPI] Habits: [Never] smoker. [Denies] alcohol consumption. [Denies] illicit drug use Review of Systems: Review of12 point system was negative set per HPI Physical Examination: GENERAL: [No acute distress.] HEAD: [Normal with no signs of head trauma.] EYES: [PERRLA, EOMI, conjunctiva and sclera normal.] ENT: [Hearing grossly intact, normal oropharynx.] NECK: [Supple without JVD. There is no tenderness, lymphadenopathy, or masses. No thyromegaly. Normal carotid upstrokes without bruits.] LUNGS: [Clear breath sounds bilaterally. No wheezes, or rhonchi.] HEART: [Normal rate and rhythm. Normal S1 and S2 without mumurs, gallop or rub.] VASC: [Peripheral pulses +2 bilaterally.] ABD: [Bowel sounds normal, soft, nontender, no masses, no organomegaly. No audible bruits.] : [Not examined] LYMPH: [No lymphadenopathy noted.] EXT: [No clubbing, cyanosis or edema.] SKIN: [No rashes or lesions noted.] NEURO: [Awake, alert, and oriented x3. No focal sensory or strength deficits noted.] Vital Signs (last 8hr) Date Time Temp Pulse Resp B/P (MAP) Pulse Ox O2 Delivery O2 Flow Rate FiO2 11/23/24 09:45 100 Room Air* 0 21 11/23/24 08:00 98.8 76 18 139/63 95 11/23/24 04:00 98.4 90 16 108/61 99 Room Air Laboratory: [ ] Hematology Labs: Test 11/23/24 03:42 11/22/24 17:46 Range/Units White Blood Count 6.7 4.8-10.8 K/uL Red Blood Count 3.41 L 4.00-5.50 MIL/uL Hemoglobin 9.2 L 12.0-16.0 g/dL Hematocrit 30.8 L 36-48 % Mean Corpuscular Volume 90.3 79-99 fL Mean Corpuscular Hemoglobin 27.0 27.0-33.0 pg Mean Corpuscular Hemoglobin Concent 29.9 L 32.0-36.0 g/dL Red Cell Distribution Width 19.9 H 11.0-15.5 % Platelet Count 252 130-400 K/uL Mean Platelet Volume 11.0 H 7.5-10.5 fL Immature Granulocyte % (Auto) 0.3 0-1 % Neutrophils (%) (Auto) 70.7 40.0-77.0 % Lymphocytes (%) (Auto) 20.2 L 21.0-51.0 % Monocytes (%) (Auto) 5.9 3.0-13.0 % Eosinophils (%) (Auto) 2.3 0.0-8.0 % Basophils (%) (Auto) 0.6 0.0-5.0 % Neutrophils # (Auto) 4.7 1.8-7.7 K/uL Lymphocytes # (Auto) 1.3 1.0-4.8 K/uL Monocytes # (Auto) 0.4 0.1-1.0 K/uL Eosinophils # (Auto) 0.15 0.00-0.70 K/uL Basophils # (Auto) 0.04 0.00-0.20 K/uL Absolute Immature Granulocyte (auto 0.02 0-1 K/uL Nucleated Red Blood Cells 0.0 0.0-0.19 % Red Blood Cell Morphology See comments Erythrocyte Sedimentation Rate 18 0-30 MM/HR Chemistry Labs: Test 11/23/24 10:23 11/23/24 04:34 11/23/24 03:42 11/22/24 23:12 Range/Units Troponin I High Sensitivity 69 *H 4-50 ng/L Whole Blood Glucose 93 70-110 MG/DL Sodium Level 140 136-145 mmol/L Potassium Level 3.5 3.5-5.1 mmol/L Chloride Level 106 101-111 mmol/L Carbon Dioxide Level 27 21-32 mmol/L Blood Urea Nitrogen 14 7-18 mg/dL Creatinine 1.0 0.5-1.0 mg/dL Glomerular Filtration Rate Calc 59 >90 mL/min Random Glucose 74 70-105 mg/dL Hemoglobin A1c 8.6 H 4.0-6.0 % Estimated Average Glucose (eAG) 200 H 70-126 mg/dL Total Calcium 6.9 L 8.5-10.1 mg/dL Magnesium Level 1.20 L 1.80-2.40 mg/dL Total Bilirubin 0.5 0.2-1.0 mg/dL Aspartate Amino Transf (AST/SGOT) 32 10-37 U/L Alanine Aminotransferase (ALT/SGPT) 18 12-78 U/L Alkaline Phosphatase 123 50-136 U/L Total Protein 5.6 L 6.0-8.3 g/dL Albumin 1.7 L 3.5-5.0 g/dL Thyroid Stimulating Hormone (TSH) 22.63 H 0.36-3.74 uIU/mL Lactic Acid Level 2.3 0.8-2.5 mmol/L Test 11/22/24 19:19 11/22/24 17:46 Range/Units Bedside Glucose Comment Protocol Initiated Total Creatine Kinase 175 # 21-232 U/L Diagnostics / Radiology: [Copy/Paste Echos/Imaging Report here] Assessment: PAD (peripheral artery disease) - I73.9 (Primary) Ischemic cardiomyopathy - I25.5 Chronic combined systolic (congestive) and diastolic (congestive) heart failure - I50.42 Presence of aortocoronary bypass graft - Z95.1 Bilateral carotid artery stenosis - I65.23 Atherosclerosis of coronary artery of [place] heart without angina pectoris - I25.10 Type 2 diabetes mellitus Plan: [# transient hypotension The patient presented to the emergency department endorsing dizziness, fatigue and weakness On admission the patient was noted with a low systolic blood pressure in the 80s Also on admission the patient was noted with a capillary blood glucose at 34 mg, receiving D50 one ampule x1 The patient was recently initiated on Entresto and there is a concern that this contributed to her hypotension We will recommend checking orthostatics q.12 hours, if positive administer N/S 500 mL x1 IV ] Keep on telemetry, monitor/replace electrolytes as needed We will request ICD device interrogation Start [id number] mg daily, atorvastatin 40 mg daily, Thank you for this consult cardiology will continue to follow along Maurice masterson MD ATTESTATION BY PHYSICIAN I have seen and examined the patient, reviewed the above documentation, participated in medical decision making, made necessary modifications, and agree with the treatment plan as documented by my mid-level provider above. MD ALEXANDRA Sky JAMES R MD Nov 23, 2024 11:43
[2024-11-23 12:24] LABS: INR 1.04 (0.85-1.15)
[2024-11-23 12:40] LABS: MAGNESIUM 1.5 mg/dL (1.80-2.40)
--- NOTE | 2024-11-23 13:47 | HMCIMG ---
CT ABDOMEN/PELVIS W/O CONTRAST HISTORY: Tenderness COMPARISON: 2024 TECHNIQUE: Multiple sequential axial images of the abdomen and pelvis were obtained from the dome of the diaphragm through symphysis pubis. Patient was not given contrast through intravenous route. Oral contrast was not given. FINDINGS: Small bilateral pleural effusions are seen. Poststernotomy changes are seen. There is no evidence of parenchymal disease or pulmonary nodule of the visualized lower lungs. Degenerative changes of the thoracolumbar spine are present. The heart is not enlarged. Gallstones are suspected in the gallbladder. There is liver parenchymal disease. The liver, spleen, adrenal glands and pancreas are unremarkable. There is no evidence of hydronephrosis bilaterally. No evidence of renal stone is seen. There are bilateral renal atrophy. Nonspecific small bowel dilatation and small bowel wall thickening seen. Fecal material is seen in the colon. There are normal size retroperitoneal and mesenteric lymph nodes. Small to moderate ascites is seen. Atherosclerotic changes are present. Pelvic sidewalls are symmetric bilaterally. Bladder is well distended without wall thickening. IMPRESSION: 1. Nonspecific small bowel dilatation or thickening is seen. [id number] ascites. CT was performed with one or more following dose reduction techniques: automated exposure control, adjustment of the mA and kv according to patient's size, or use of a iterative reconstruction technique.
--- NOTE | 2024-11-23 15:18 | PN ---
[facility] PROGRESS NOTE Date of Service: Nov 23, 2024 Time of Service: 15:10 SUBJECTIVE: This is a 74-year-old, Marshallese-speaking female with past medical history of Coronary artery disease, S/P cabg 2007, advanced cardiomyopathy s/p AICD with systolic recovery and latest EF 55%, Liver cirrhosis , GERD, Diabetes type 2, peripheral neuropathy, hyperlipidemia, hypertension, hypothyroidism, arthritis and cholelithiasis who was brought by EMS to the ED for evaluation of generalized body weakness.Apparently patient was at the PCP clinic today for a routine check up and she was found to be hypotensive .Upon ER arrival patient V/S temperature 98.1, heart rate 65 blood pressure 83/47 saturation 97% on room air.blood sugar was 51 and patient was given D50 1 amp. She c/o loose stools since 1 day and is tested positive for C .Diff at the outpatient office .She has h/o recurrent loose stools in the past . On further examination patient was found to have bilateral necrotic wound ulcers to both heels which has been there for 5 months already she said and it is getting worse tot he point that she is having difficulty walking she said.Patient also has generalized swelling all over the body . Labs revealed hemoglobin 8.6, hematocrit 28.8, platelet count 273. Sodium 141, potassium three, creatinine 1.1, GFR 52 random glucose 51, lactic acid 3.1, total calcium 7.1 magnesium 1.2 troponin 65. Right foot x-ray result revealed vascular calcifications are seen there is no acute displaced fracture or dislocation. Degenerative changes are seen. Left foot x-ray result revealed there is no acute displaced fracture or dislocation vascular calcifications are seen. Degenerative changes are seen. Chest x-ray result revealed mild bilateral pulmonary infiltrates are seen may be related to mild pulmonary vascular congestion with possible superimposed pneumonitis. Patient is admitted for further evaluation and management of loose stools and hypotension . 6.26.25: Patient is resting comfortably on the bed. She stated that she had watery bowel movements >10 times yesterday night .Sh ewill be started on Oral Vancomycin .pending Podiatry consult. She is in NAD. REVIEW OF SYSTEMS CONSTITUTIONAL: Denies fevers, chills, or night sweats. No unintentional weight loss reported. NEUROLOGICAL: Denies headache, amaurosis fugax, motor weakness, sensory defici t, vertigo/spinning sensation, gait abnormalities, or tremors. ENT: No hearing loss, otalgia, otorrhea, rhinitis, rhinorrhea, hoarseness, or sore throat. CARDIOVASCULAR: Denies any exertional angina, dyspnea on exertion, orthopnea, paroxysmal nocturnal dyspnea, palpitations, life-threatening arrhythmias, claudication. PULMONARY: Denies any shortness of breath, cough, phlegm/sputum, hemoptysis, pleuritic chest pain. SLEEP: Denies morning headaches, daytime somnolence or napping. Denies difficulty falling asleep, staying asleep, waking from sleep. Denies knowledge of snoring. GASTROINTESTINAL: Denies any type of dysphagia to either liquids or solids. Denies nausea, vomiting, pyrosis, early satiety, abdominal pain, diarrhea, constipation, or changes in stool consistency or caliber. Denies coffee-ground emesis, hematemesis, hematochezia, or melanotic stools. GENITOURINARY: Denies frequency, urgency, nocturia, hematuria or incontinence (Storage/Irritative symptoms.) Low urinary stream, straining to void, urinary intermittency or hesitancy, splitting of the voiding stream, terminal dribbling. ENDOCRINOLOGIC: Denies polyuria, polydipsia, polyphagia or heat/cold intolerances. HEMATOLOGIC: Denies thrombophilia/previous clots, or coagulopathy/bleeding disorders. ONCOLOGIC: Denies personal history of malignancy. DERMATOLOGIC: Denies rashes or pruritus. PSYCHIATRIC: Denies any suicidal or homicidal ideation. Denies hallucinations. PHYSICAL EXAM GENERAL APPEARANCE: The patient is awake, alert, and oriented, in no acute cardiopulmonary distress. NEUROLOGICAL: Cranial nerves II-XII grossly intact. Motor is 5/5 in bilateral upper and lower extremities proximal to distal. No sensory deficits. HEENT: Face is symmetric. Pupils are equal and reactive. Extraocular movements are intact. NECK: Supple. No JVD. No thyromegaly. No submental, submandibular, pre- /postauricular, occipital or supraclavicular lymphadenopathy. CHEST: Normal chest expansion. No Telemetry. LUNGS: Absence of any rales, rhonchi or any wheezing. CARDIOVASCULAR: Regular. S1 and S2 normal. No appreciable rubs, murmurs or gallops. ABDOMEN: Soft, nontender, and nondistended. There is no rebound, voluntary guarding, or rigidity. : Deferred. No Velazquez. EXTREMITIES: Right upper extremity edema SKIN: Bilateral heel necrotic ulcers . Vital Signs (last 8hr) Date Time Temp Pulse Resp B/P (MAP) Pulse Ox O2 Delivery O2 Flow Rate FiO2 11/23/24 09:45 100 Room Air* 0 21 11/23/24 08:00 98.8 76 18 139/63 95 LABS: Laboratory: Test 11/23/24 12:08 11/23/24 11:28 11/23/24 10:23 11/23/24 03:42 Range/Units Prothrombin Time 11.0 9.6-11.6 SEC Prothromb Time International Ratio 1.04 0.85-1.15 Magnesium Level 1.50 L 1.80-2.40 mg/dL KI-Byv-D-Type Natriuretic Peptide 5286 H 0-450 pg/mL Procalcitonin 0.07 0.05-0.5 ng/mL Free Thyroxine (T4) Direct 1.25 0.76-1.46 ng/dL Free Triiodothyronine (T3) pg/mL 0.64 L 2.18-3.98 pg/mL Whole Blood Glucose 144 #H 70-110 MG/DL Troponin I High Sensitivity 69 *H 4-50 ng/L White Blood Count 6.7 4.8-10.8 K/uL Red Blood Count 3.41 L 4.00-5.50 MIL/uL Hemoglobin 9.2 L 12.0-16.0 g/dL Hematocrit 30.8 L 36-48 % Mean Corpuscular Volume 90.3 79-99 fL Mean Corpuscular Hemoglobin 27.0 27.0-33.0 pg Mean Corpuscular Hemoglobin Concent 29.9 L 32.0-36.0 g/dL Red Cell Distribution Width 19.9 H 11.0-15.5 % Platelet Count 252 130-400 K/uL Mean Platelet Volume 11.0 H 7.5-10.5 fL Immature Granulocyte % (Auto) 0.3 0-1 % Neutrophils (%) (Auto) 70.7 40.0-77.0 % Lymphocytes (%) (Auto) 20.2 L 21.0-51.0 % Monocytes (%) (Auto) 5.9 3.0-13.0 % Eosinophils (%) (Auto) 2.3 0.0-8.0 % Basophils (%) (Auto) 0.6 0.0-5.0 % Neutrophils # (Auto) 4.7 1.8-7.7 K/uL Lymphocytes # (Auto) 1.3 1.0-4.8 K/uL Monocytes # (Auto) 0.4 0.1-1.0 K/uL Eosinophils # (Auto) 0.15 0.00-0.70 K/uL Basophils # (Auto) 0.04 0.00-0.20 K/uL Absolute Immature Granulocyte (auto 0.02 0-1 K/uL Nucleated Red Blood Cells 0.0 0.0-0.19 % Sodium Level 140 136-145 mmol/L Potassium Level 3.5 3.5-5.1 mmol/L Chloride Level 106 101-111 mmol/L Carbon Dioxide Level 27 21-32 mmol/L Blood Urea Nitrogen 14 7-18 mg/dL Creatinine 1.0 0.5-1.0 mg/dL Glomerular Filtration Rate Calc 59 >90 mL/min Random Glucose 74 70-105 mg/dL Hemoglobin A1c 8.6 H 4.0-6.0 % Estimated Average Glucose (eAG) 200 H 70-126 mg/dL Total Calcium 6.9 L 8.5-10.1 mg/dL Total Bilirubin 0.5 0.2-1.0 mg/dL Aspartate Amino Transf (AST/SGOT) 32 10-37 U/L Alanine Aminotransferase (ALT/SGPT) 18 12-78 U/L Alkaline Phosphatase 123 50-136 U/L Total Protein 5.6 L 6.0-8.3 g/dL Albumin 1.7 L 3.5-5.0 g/dL Thyroid Stimulating Hormone (TSH) 22.63 H 0.36-3.74 uIU/mL Test 11/23/24 00:50 11/22/24 23:12 11/22/24 19:19 11/22/24 17:46 Range/Units Urine Color YELLOW YELLOW Urine Appearance CLOUDY H CLEAR Urine pH 6.0 5.0-8.0 Urine Specific [place] 1.024 1.001-1.031 Urine Protein 50 H NEGATIVE mg/dL Urine Glucose (UA) >=1000 H NEGATIVE mg/dL Urine Ketones NEGATIVE NEGATIVE mg/dL Urine Occult Blood SMALL H NEGATIVE Urine Nitrate NEGATIVE NEGATIVE Urine Bilirubin NEGATIVE NEGATIVE mg/dL Urine Urobilinogen 0.2 0.2-1.0 mg/dL Urine Leukocyte Esterase 500 H NEGATIVE Kal[place]/uL Urine RBC 51-100 H 0-1 /HPF Urine WBC 11-25 H 0-1 /HPF Urine Squamous Epithelial Cells FEW 0-2 /HPF Urine Bacteria FEW None Seen /HPF Lactic Acid Level 2.3 0.8-2.5 mmol/L Bedside Glucose Comment Protocol Initiated Red Blood Cell Morphology See comments Erythrocyte Sedimentation Rate 18 0-30 MM/HR Total Creatine Kinase 175 # 21-232 U/L Current Medications Medications (Trade) Dose Ordered Sig/Sigrid Route PRN Reason Start Time Stop Time Status Last Admin Dose Admin Acetaminophen (TYLenol 325MG TAB) 650 mg Q4H PRN PO MILD PAIN (1-3) 11/22/24 22:30 12/22/24 22:29 Acetaminophen (TYLenol 325MG TAB) 650 mg Q6H PRN PO TEMPERATURE GREATER THAN 101.5 11/22/24 22:30 12/22/24 22:29 Aspirin (Aspirin 81mg Ec Tab) 81 mg DAILY PO 11/23/24 09:00 12/23/24 08:59 11/23/24 09:41 81 MG Cefepime HCl (MAXipime 1 GM vial) 1 gm Q12H IVPB 11/22/24 22:30 12/02/24 22:29 11/23/24 09:42 1 GM Dextrose (D50w) 50 ml AD PRN IV HYPOGLYCEMIA PROTOCOL 11/22/24 22:30 12/22/24 22:29 11/22/24 23:18 50 ML Famotidine (Pepcid 20mg Tab) 20 mg DAILY PO 11/23/24 09:00 12/23/24 08:59 11/23/24 09:41 20 MG Furosemide (LASix 40MG VIAL) 40 mg DAILY IV 11/24/24 09:00 12/24/24 08:59 Glucagon (Glucagon 1mg Kit) 1 mg AD PRN IM HYPOGLYCEMIA PROTOCOL 11/22/24 22:30 12/22/24 22:29 Levothyroxine Sodium (SYNTHroid 100MCG TAB) 100 mcg SYN PO 11/23/24 06:30 12/23/24 06:29 11/23/24 05:21 100 MCG Magnesium Sulfate 50 ml @ 0 mls/hr PROTOCOL PRN IV OTHER [SEE ORDER COMMENTS] 11/22/24 22:30 12/22/24 22:29 11/23/24 05:22 15 MLS/HR Ondansetron HCl (zoFRAN 4MG INJ) 4 mg Q6H PRN IV NAUSEA/VOMITING 11/22/24 22:30 12/22/24 22:29 Potassium Chloride 100 ml @ 100 mls/hr AD PRN IV POTASSIUM PROTOCOL 11/22/24 22:30 12/22/24 22:29 Potassium Chloride (K-Dur/Klor-Con 20meq) 20 meq AD PRN PO POTASSIUM PROTOCOL 11/22/24 22:30 12/22/24 22:29 11/23/24 05:22 20 MEQ Potassium Chloride (KCl 10% Elixir 20meq/15ml) 20 meq AD PRN PO POTASSIUM PROTOCOL 11/22/24 22:30 12/22/24 22:29 Simvastatin (zoCOR) 40 mg HS PO 11/23/24 21:00 12/23/24 20:59 Vancomycin HCl 250 ml @ 125 mls/hr ONCE IV 11/22/24 22:30 11/22/24 22:22 DC Vancomycin HCl 250 ml @ 125 mls/hr Q24H IV 11/23/24 20:00 12/03/24 19:59 Vancomycin HCl (Vancomycin Protocol) 1 each AD IV 11/22/24 19:00 12/06/24 18:59 DIAGNOSTICS / RADIOLOGY: [ ] ASSESSMENT: Generalized body weakness secondary to C.Diff , POA Acute C.Diff colitis, POA Transient hypotension POA possibly due to Entresto- resolved 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 Bilateral heel necrotic ulcers with dry gangrene, toe ulcer POA Anemia of chronic disease POA Chronic kidney disease POA Diabetes POA Uncontrolled Hypothyroidism POA Hyperlipidemia POA CHF POA Peripheral vascular disease POA Carotid artery stenosis, bilateral, POA Chronic combined systolic (congestive) and diastolic (congestive) heart failure, POA PLAN: Acute C.Diff colitis, POA patient was found to be CDiff positive at outpatient office Patient c/o loose stools and abdominal pain Pending stool cultures including cDiff continue PO Vancomycin Anasarca secondary to Hypoalbuminemia , CKD and heart failure Liver cirrhosis as per previous CT Stable liver function Continue Lasix Transient hypotension POA Ischemic cardiomyopathy Chronic combined systolic (congestive) and diastolic (congestive) heart failure, POA As per cardiology : The patient was recently initiated on Entresto and there is a concern that this contributed to her hypotension check orthostatics q.12 hours, if positive administer N/S 500 mL x1 IV will hold Entresto for now as recommended by Cardiology BNP elevated at 5000s - secondary to Enteresto - will continue to monitor ECHO was cancelled by Cardiology monitor vital signs 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 I reviewed the documentation, medical decision making, and treatment plan as noted by the resident provider above. I agree with the findings and plan of care. STEPHIE CRAWFORD MD, MD Nov 23, 2024 15:18
--- NOTE | 2024-11-23 15:20 | HMCIMG ---
US VENOUS DOPPLER UNILATERAL HISTORY: Right arm swelling COMPARISON: None TECHNIQUE: Right upper extremity venous Doppler ultrasound study was performed. FINDINGS: The right subclavian, axillary, and brachial veins are visualized. Diminished flow is noted in the right distal subclavian, axillary, brachial, cephalic and basilic veins. IMPRESSION: 1. There is diminished flow in the right distal subclavian, axillary, brachial, cephalic and basilic veins. The right subclavian vein proximally in most likely occluded.
[2024-11-23] MEDS ORDERED: COMPOUND PO REF 1 EA BTL MISC PRN (17:00)
[2024-11-23] MEDS ORDERED: APIX5TAB PO ×2 (17:00)
[2024-11-23] MEDS ORDERED: LEVO125C5 PO ×2 (17:00)
[2024-11-23] MEDS ORDERED: PANT40TA54 PO (17:00)
[2024-11-23] MEDS: VANCOMYCIN HCL 125 MG/ 2.5 ML SOLN ORAL.SYG PO SCH (18:16)
--- NOTE | 2024-11-23 18:36 | CONS ---
CONSULTATION NOTE Date of Service: Nov 23, 2024 Reason for Consultation: This 74 years old female was seen in consultation for evaluation and bilateral heel necrotic ulcers over four months' duration and hallux right necrotic ulcer distal aspect. Patient has severe peripheral vascular disease history of cardiomyopathy. Requesting Physician: Dr. Rome HISTORY OF PRESENT ILLNESS: Gangrene bilateral heels and hallux right peripheral vascular disease with ]past medical history of Coronary artery disease, S/P cabg 2007, advanced cardiomyopathy s/p AICD with systolic recovery and latest EF 55%, Liver cirrhosis , GERD, Diabetes type 2, peripheral neuropathy, hyperlipidemia, hypertension, hypothyroidism, arthritis and cholelithiasis REVIEW OF SYSTEMS CONSTITUTIONAL: Denies fever, chills, or fatigue. HEAD/FACE: No signs of trauma. EENT: Denies eye pain, blurred vision, double vision, or light sensitivity. RESPIRATORY: Denies shortness of breath, cough, wheezing CARDIOVASCULAR: Denies chest pain, palpitation, syncope nonpalpable pulses bilateral feet cold feet. GASTROINTESTINAL/ABDOMINAL: Denies abdominal pain, constipation, diarrhea, nausea or vomiting GENITOURINARY: Denies dysuria or hematuria. MUSCULOSKELETAL: Denies joint pain, tenderness, or trauma. INTEGUMENTARY: Gangrene bilateral heels and hallux right NEUROLOGICAL/PSYCH: Denies anxiety, depression, heat or cold intolerance. PAST MEDICAL HISTORY: As per above PAST SURGICAL HISTORY: Patient has a long history of severe two-vessel CAD on a 2006 cath with a EF of 10 to 15%. She had four-vessel CABG in 2007. 2016 angiogram revealed 4/4 patent grafts. She has known cardiomyopathy with an ICD. 2018 EF was 30 to 35% status post ICD placement. Last echo in July 2024 with systolic recovery, EF 50- 55%. 2022 carotid Doppler showed 50 to 70% stenosis in the R ICA. Previously had chronically occluded bilateral SFAs documented with single-vessel runoff via diseased RASHI's in January 2024. PAST SOCIAL HISTORY: No smoking drinking or using illicit drugs FAMILY HISTORY: Noncontributory Coded Allergies: No Known Drug Allergies (Unverified Allergy, Unknown, 07/05/15) PHYSICAL EXAM EYES: Anicteric. Pupils equal and reactive. HENT: No oral thrush seen, moist Oral mucosa NECK: Supple, no JVD or thyromegaly. LUNGS: Good air entry. No rales, no rhonchi. CARDIOVASCULAR: S1, S2 regular. No murmur heard. Nonpalpable pulses bilateral feet cold feet consistent with a small-vessel disease positive edema and lower extremity and gangrene on bilateral heels and distal hallux right. ABDOMEN: Soft, non tender, bowel sounds present, no organomegaly CENTRAL NERVOUS SYSTEM: Awake, alert, oriented x 3. No focal deficits. SKIN: Gangrenous ulcer dry bilateral heels and hallux ulcer distal aspect right. LYMPHATICS: No peripheral lymphadenopathy MUSCULOSKELETAL: No joint swelling, erythema or tenderness. EXTREMITIES: No cyanosis or clubbing BACK: No deformity, no pressure ulcer. GENITOURINARY: No dysuria or hematuria Vital Sign (Last 24 Hours) 11/23/24 11/23/24 08:00 09:45 Temp 98.8 Pulse 76 Resp 18 B/P (MAP) 139/63 Pulse Ox 100 O2 Delivery Room Air* O2 Flow Rate 0 FiO2 21 Intake & Output (last 24hrs) 11/22/24 11/22/24 11/23/24 15:00 23:00 07:00 Intake Total 300.0 ml Balance 300.0 ml LABS: Laboratory: Test 11/23/24 16:38 11/23/24 12:08 11/23/24 10:23 11/23/24 03:42 Range/Units Whole Blood Glucose 164 H 70-110 MG/DL Prothrombin Time 11.0 9.6-11.6 SEC Prothromb Time International Ratio 1.04 0.85-1.15 Magnesium Level 1.50 L 1.80-2.40 mg/dL [id number]-Jno-[id number]-Type Natriuretic Peptide 5286 H 0-450 pg/mL Procalcitonin 0.07 0.05-0.5 ng/mL Free Thyroxine (T4) Direct 1.25 0.76-1.46 ng/dL Free Triiodothyronine (T3) pg/mL 0.64 L 2.18-3.98 pg/mL Troponin I High Sensitivity 69 *H 4-50 ng/L White Blood Count 6.7 4.8-10.8 K/uL Red Blood Count 3.41 L 4.00-5.50 MIL/uL Hemoglobin 9.2 L 12.0-16.0 g/dL Hematocrit 30.8 L 36-48 % Mean Corpuscular Volume 90.3 79-99 fL Mean Corpuscular Hemoglobin 27.0 27.0-33.0 pg Mean Corpuscular Hemoglobin Concent 29.9 L 32.0-36.0 g/dL Red Cell Distribution Width 19.9 H 11.0-15.5 % Platelet Count 252 130-400 K/uL Mean Platelet Volume 11.0 H 7.5-10.5 fL Immature Granulocyte % (Auto) 0.3 0-1 % Neutrophils (%) (Auto) 70.7 40.0-77.0 % Lymphocytes (%) (Auto) 20.2 L 21.0-51.0 % Monocytes (%) (Auto) 5.9 3.0-13.0 % Eosinophils (%) (Auto) 2.3 0.0-8.0 % Basophils (%) (Auto) 0.6 0.0-5.0 % Neutrophils # (Auto) 4.7 1.8-7.7 K/uL Lymphocytes # (Auto) 1.3 1.0-4.8 K/uL Monocytes # (Auto) 0.4 0.1-1.0 K/uL Eosinophils # (Auto) 0.15 0.00-0.70 K/uL Basophils # (Auto) 0.04 0.00-0.20 K/uL Absolute Immature Granulocyte (auto 0.02 0-1 K/uL Nucleated Red Blood Cells 0.0 0.0-0.19 % Sodium Level 140 136-145 mmol/L Potassium Level 3.5 3.5-5.1 mmol/L Chloride Level 106 101-111 mmol/L Carbon Dioxide Level 27 21-32 mmol/L Blood Urea Nitrogen 14 7-18 mg/dL Creatinine 1.0 0.5-1.0 mg/dL Glomerular Filtration Rate Calc 59 >90 mL/min Random Glucose 74 70-105 mg/dL Hemoglobin A1c 8.6 H 4.0-6.0 % Estimated Average Glucose (eAG) 200 H 70-126 mg/dL Total Calcium 6.9 L 8.5-10.1 mg/dL Total Bilirubin 0.5 0.2-1.0 mg/dL Aspartate Amino Transf (AST/SGOT) 32 10-37 U/L Alanine Aminotransferase (ALT/SGPT) 18 12-78 U/L Alkaline Phosphatase 123 50-136 U/L Total Protein 5.6 L 6.0-8.3 g/dL Albumin 1.7 L 3.5-5.0 g/dL Thyroid Stimulating Hormone (TSH) 22.63 H 0.36-3.74 uIU/mL Test 11/23/24 00:50 11/22/24 23:12 11/22/24 19:19 11/22/24 17:46 Range/Units Urine Color YELLOW YELLOW Urine Appearance CLOUDY H CLEAR Urine pH 6.0 5.0-8.0 Urine Specific [place] 1.024 1.001-1.031 Urine Protein 50 H NEGATIVE mg/dL Urine Glucose (UA) >=1000 H NEGATIVE mg/dL Urine Ketones NEGATIVE NEGATIVE mg/dL Urine Occult Blood SMALL H NEGATIVE Urine Nitrate NEGATIVE NEGATIVE Urine Bilirubin NEGATIVE NEGATIVE mg/dL Urine Urobilinogen 0.2 0.2-1.0 mg/dL Urine Leukocyte Esterase 500 H NEGATIVE [place]/uL Urine RBC 51-100 H 0-1 /HPF Urine WBC 11-25 H 0-1 /HPF Urine Squamous Epithelial Cells FEW 0-2 /HPF Urine Bacteria FEW None Seen /HPF Lactic Acid Level 2.3 0.8-2.5 mmol/L Bedside Glucose Comment Protocol Initiated Red Blood Cell Morphology See comments Erythrocyte Sedimentation Rate 18 0-30 MM/HR Total Creatine Kinase 175 # 21-232 U/L DIAGNOSTICS / RADIOLOGY: [ ] ASSESSMENT: Peripheral arterial disease Gangrene bilateral heels necrotic ulcers. Small-vessel disease in bilateral feet with a ischemic changes. Hallux ulcer ischemic right. PLAN: Patient was admitted secondary to generalized weakness nausea vomiting diarrhea. Recommended continued medical management at this time we will follow up cardiovascular recommendations in the future patient to have any type of foot surgeries we will need revascularization of the lower extremities with poor prognosis secondary to above-mentioned problems. In the meanwhile we will recommend local wound care Betadine dressings or keep open to air dry with Betadine paint on a daily basis and we will follow up as an outpatient once the patient more stable at discharge we will order follow up by cardiovascular recommendations. CAROLINE BLACKMON DPM Nov 23, 2024 18:36
[2024-11-23] MEDS ORDERED: VANCOMYCIN 1G/250ML KIT 250 ML IV SCH (20:00)
[2024-11-23] MEDS: furoSEMIDE 40MG VIAL IV SCH (20:36)
[2024-11-23] MEDS: simVASTatin 20 MG TABLET PO SCH (20:37)
[2024-11-23] MEDS: APIXaban 5 MG TABLET PO SCH (20:37)
[2024-11-23] MEDS ORDERED: RIVAROXABAN 10 MG TABLET PO SCH (21:00)
[2024-11-24] VITALS (7 sets, daily range): BP systolic 100–120; BP diastolic 50–57; PULSE 77–90; RESP 16–18; TEMP 97.5–98.2; O2SAT 100
[2024-11-24] MEDS: INSULIN humuLIN R 100 UNIT/ML 3ML SQ SCH (05:38)
[2024-11-24] MEDS: levoTHYROxine 125 MCG TABLET PO SCH (05:41)
[2024-11-24] MEDS ORDERED: levoTHYROxine 125 MCG TABLET PO SCH (06:30)
[2024-11-24 06:43] LABS: BASOPHILS # (AUTO) 0.06 K/uL (0.00-0.20); EOSINOPHILS # (AUTO) 0.13 K/uL (0.00-0.70); EOSINOPHILS % (AUTO) 2.1 % (0.0-8.0); HEMATOCRIT 25.7 % (36-48); IMMATURE GRANULOCYTE ABSOLUTE 0.03 K/uL (0-1); LYMPHOCYTES # (AUTO) 1.3 K/uL (1.0-4.8); MEAN CORPUSCULAR HEMOGLOBIN 27.2 pg (27.0-33.0); MEAN CORPUSCULAR VOLUME 90.8 fL (79-99); MONOCYTES # (AUTO) 0.5 K/uL (0.1-1.0); NEUTROPHILS # (AUTO) 4.2 K/uL (1.8-7.7); NEUTROPHILS % (AUTO) 67.4 % (40.0-77.0); PLATELET COUNT (AUTO) 224 K/uL (130-400); RED BLOOD CELL COUNT(AUTO) 2.83 MIL/uL (4.00-5.50); RED CELL DISTRIBUTION WIDTH 19.9 % (11.0-15.5); WHITE BLOOD COUNT (AUTO) 6.2 K/uL (4.8-10.8)
[2024-11-24 07:03] LABS: ALBUMIN 1.8 g/dL (3.5-5.0); BILIRUBIN,TOTAL 0.6 mg/dL (0.2-1.0); CREATININE 1.2 mg/dL (0.5-1.0); MAGNESIUM 1.9 mg/dL (1.80-2.40); POTASSIUM 4.4 mmol/L (3.5-5.1); TOTAL PROTEIN, SERUM 5.9 g/dL (6.0-8.3)
[2024-11-24] MEDS ORDERED: COMPOUND PO REF 1 EA BTL MISC PRN (08:30)
[2024-11-24] MEDS ORDERED: COMPOUND PO MISCELLANEOUS 1 EACH MISC MISC PRN (08:30)
--- NOTE | 2024-11-24 08:55 | PN ---
[facility] CARDIOLOGY PROGRESS NOTE Date Patient Seen: Nov 24, 2024 Time of Visit: 08:51 Interval History: No acute events overnight , the patient is hemodynamically stable , her blood pressure average is 110-120s , her orthostatic are negative thus far, pending device interrogation ] Physical Examination: GENERAL: [No acute distress.] HEAD: [Normal with no signs of head trauma.] EYES: [PERRLA, EOMI, conjunctiva and sclera normal.] ENT: [Hearing grossly intact, normal oropharynx.] NECK: [Supple without JVD. There is no tenderness, lymphadenopathy, or masses. No thyromegaly. Normal carotid upstrokes without bruits.] LUNGS: [Clear breath sounds bilaterally. No wheezes, or rhonchi.] HEART: [Normal rate and rhythm. Normal S1 and S2 without murmurs, gallop or rub.] VASC: [Peripheral pulses +2 bilaterally.] ABD: [Bowel sounds normal, soft, nontender, no masses, no organomegaly. No audible bruits.] : [Not examined] LYMPH: [No lymphadenopathy noted.] EXT: [No clubbing, cyanosis or edema.] SKIN: [No rashes or lesions noted.] NEURO: [Awake, alert, and oriented x3. No focal sensory or strength deficits noted.] Laboratory: [ ] Hematology Labs: Test 11/24/24 06:15 11/22/24 17:46 Range/Units White Blood Count 6.2 4.8-10.8 K/uL Red Blood Count 2.83 L 4.00-5.50 MIL/uL Hemoglobin 7.7 L 12.0-16.0 g/dL Hematocrit 25.7 L 36-48 % Mean Corpuscular Volume 90.8 79-99 fL Mean Corpuscular Hemoglobin 27.2 27.0-33.0 pg Mean Corpuscular Hemoglobin Concent 30.0 L 32.0-36.0 g/dL Red Cell Distribution Width 19.9 H 11.0-15.5 % Platelet Count 224 130-400 K/uL Mean Platelet Volume 11.0 H 7.5-10.5 fL Immature Granulocyte % (Auto) 0.5 0-1 % Neutrophils (%) (Auto) 67.4 40.0-77.0 % Lymphocytes (%) (Auto) 21.0 21.0-51.0 % Monocytes (%) (Auto) 8.0 3.0-13.0 % Eosinophils (%) (Auto) 2.1 0.0-8.0 % Basophils (%) (Auto) 1.0 0.0-5.0 % Neutrophils # (Auto) 4.2 1.8-7.7 K/uL Lymphocytes # (Auto) 1.3 1.0-4.8 K/uL Monocytes # (Auto) 0.5 0.1-1.0 K/uL Eosinophils # (Auto) 0.13 0.00-0.70 K/uL Basophils # (Auto) 0.06 0.00-0.20 K/uL Absolute Immature Granulocyte (auto 0.03 0-1 K/uL Nucleated Red Blood Cells 0.0 0.0-0.19 % Red Blood Cell Morphology See comments Erythrocyte Sedimentation Rate 18 0-30 MM/HR Chemistry Labs: Test 11/24/24 06:15 11/24/24 05:28 11/23/24 12:08 11/23/24 03:42 Range/Units Sodium Level 140 136-145 mmol/L Potassium Level 4.4 3.5-5.1 mmol/L Chloride Level 108 101-111 mmol/L Carbon Dioxide Level 23 21-32 mmol/L Blood Urea Nitrogen 15 7-18 mg/dL Creatinine 1.2 H 0.5-1.0 mg/dL Glomerular Filtration Rate Calc 47 >90 mL/min Random Glucose 193 H 70-105 mg/dL Lactic Acid Level 1.7 0.8-2.5 mmol/L Total Calcium 7.4 L 8.5-10.1 mg/dL Magnesium Level 1.90 1.80-2.40 mg/dL Total Bilirubin 0.6 0.2-1.0 mg/dL Aspartate Amino Transf (AST/SGOT) 31 10-37 U/L Alanine Aminotransferase (ALT/SGPT) 16 12-78 U/L Alkaline Phosphatase 117 50-136 U/L Troponin I High Sensitivity 51 *H 4-50 ng/L GV-Ppm-N-Type Natriuretic Peptide 7032 H 0-450 pg/mL Total Protein 5.9 L 6.0-8.3 g/dL Albumin 1.8 L 3.5-5.0 g/dL Whole Blood Glucose 175 H 70-110 MG/DL Procalcitonin 0.07 0.05-0.5 ng/mL Free Thyroxine (T4) Direct 1.25 0.76-1.46 ng/dL Free Triiodothyronine (T3) pg/mL 0.64 L 2.18-3.98 pg/mL Hemoglobin A1c 8.6 H 4.0-6.0 % Estimated Average Glucose (eAG) 200 H 70-126 mg/dL Thyroid Stimulating Hormone (TSH) 22.63 H 0.36-3.74 uIU/mL Test 11/22/24 19:19 11/22/24 17:46 Range/Units Bedside Glucose Comment Protocol Initiated Total Creatine Kinase 175 # 21-232 U/L Coagulation Labs: Test 11/23/24 12:08 Range/Units Prothrombin Time 11.0 9.6-11.6 SEC Prothromb Time International Ratio 1.04 0.85-1.15 Diagnostics / Radiology: [Copy/Paste Echos/Imaging Report here] Impression and Plan: [ PAD (peripheral artery disease) - I73.9 (Primary) Ischemic cardiomyopathy - I25.5 Chronic combined systolic (congestive) and diastolic (congestive) heart failure - I50.42 Presence of aortocoronary bypass graft - Z95.1 Bilateral carotid artery stenosis - I65.23 Atherosclerosis of coronary artery of [place] heart without angina pectoris - I25.10 Type 2 diabetes mellitus Plan: [# transient hypotension The patient presented to the emergency department endorsing dizziness, fatigue and weakness On admission the patient was noted with a low systolic blood pressure in the 80s Also on admission the patient was noted with a capillary blood glucose at 34 mg, receiving D50 one ampule x1 The patient was recently initiated on Entresto and there is a concern that this contributed to her hypotension We will recommend checking orthostatics q.12 hours, if positive administer N/S 500 mL x1 IV Until know her orthostatics have been negative Her blood pressure average is 110-120s , no cardiac symptoms or anginal equivalents. ] Keep on telemetry, monitor/replace electrolytes as needed Pending ICD device interrogation Continue [id number] mg daily, atorvastatin 40 mg daily, If the device interrogation is unremarkable , the patient can be discharge in the next 24 hrs Thank you for this consult cardiology will continue to follow along Maurice masterson MD] ATTESTATION BY PHYSICIAN I have seen and examined the patient, reviewed the above documentation, participated in medical decision making, made necessary modifications, and agree with the treatment plan as documented by my mid-level provider above. MD ALEXANDRA Sky JAMES R MD Nov 24, 2024 08:55
[2024-11-24] MEDS ORDERED: NON-FORMULARY MEDICATION 1 EACH (Levothyroxine Sodium (Levothyroxine) 1 CAP) PO SCH (09:00)
[2024-11-24] MEDS ORDERED: furoSEMIDE 40MG VIAL IV SCH (09:00)
--- NOTE | 2024-11-24 10:34 | DS ---
Discharge Summary Hospital Course Summary: This is a 74-year-old, Mongolian-speaking female with past medical history of Coronary artery disease, S/P cabg 2007, advanced cardiomyopathy s/p AICD with systolic recovery and latest EF 55%, Liver cirrhosis , GERD, Diabetes type 2, peripheral neuropathy, hyperlipidemia, hypertension, hypothyroidism, arthritis and cholelithiasis who was brought by EMS to the ED for evaluation of generalized body weakness.Apparently patient was at the PCP clinic today for a routine check up and she was found to be hypotensive .Upon ER arrival patient V/S temperature 98.1, heart rate 65 blood pressure 83/47 saturation 97% on room air. Blood sugar was 51 and patient was given D50 1 amp. She c/o loose stools since 1 day and is tested positive for C .Diff at the outpatient office .She has h/o recurrent loose stools in the past . On further examination patient was found to have bilateral necrotic wound ulcers to both heels which has been there for 5 months and it is getting worse tot he point that she is having difficulty walking .Patient also has generalized swelling all over the body . Labs revealed hemoglobin 8.6, hematocrit 28.8, platelet count 273. Sodium 141, potassium three, creatinine 1.1, GFR 52 random glucose 51, lactic acid 3.1, total calcium 7.1 magnesium 1.2 troponin 65. Right foot x-ray result revealed vascular calcifications with no acute displaced fracture or dislocation. Degenerative changes are seen. Left foot x-ray result revealed no acute displaced fracture or dislocation . Degenerative changes are seen. Chest x-ray result revealed mild bilateral pulmonary infiltrates , may be related to mild pulmonary vascular congestion with possible superimposed pneumonitis. Patient is admitted for further evaluation and management of loose stools and hypotension . Given the h/o positive C.Diff tested at primary care office and multiple watery stools, patient was started on Oral Vancomycin . Patients daughter states that this is first recurrent episode of C.Diff. Podiatry recommended conservative management at this time. Cardiology was consulted and held Entresto as this could be the reason for her transient hypotension. Her BP was stable throughout her stay. Her AICD device is interrogated. 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 She is required to follow a vascular surgeon outpatient for this ..She is clinically stable at the time of discharge . Supervisor Cell Room(s): [facility] CARDIOLOGY CONSULTATION NOTE Date Patient Seen: Nov 23, 2024 Time of Visit: 11:26 Reason for Consultation: Hypotension ] History of Present Illness: [74-year-old female patient that follows up in Cardiology Clinic with Dr. Wu, Patient has a long history of severe two-vessel CAD on a 2006 cath with a EF of 10 to 15%. She had four-vessel CABG in 2007. 2015 angiogram revealed 4/4 patent grafts. She has known cardiomyopathy with an ICD. 2018 EF was 30 to 35% status post ICD placement. Last echo in July 2024 with systolic recovery, EF 50- 55%. 2022 carotid Doppler showed 50 to 70% stenosis in the R ICA. Previously had chronically occluded bilateral SFAs documented with single-vessel runoff via diseased RASHI's in January 2024. She is maintained on PAD dose Xarelto and a spirin, who was brought by EMS to the ED for evaluation of generalized body weakness.Apparently patient was at the PCP clinic yesterday for a routine check up and she was found to be hypotensive, noted with capillary glucose at 34. On our evaluation at the bedside, the patient is endorsing positional dizziness, troponin weakly elevated with a flattened trend (65, 64 peaked at 69). Of note the patient was recently transitioned to Entresto 24/26 mg and Toprol-XL for GDMT optimization, and as per patient's daughter she has noticed her blood pressure progressively lower for the past two weeks. The patient has a prior 2D echocardiogram from 07/04/2024 that showed LVEF 50-55%, moderately dilated left atrium. Cardiology was consulted for hypotension Past Medical History: [Refer to chart ] Past Surgical History: [ Refer to HPI] Family History: [ Refer to HPI Social History: [ Refer to HPI] Habits: [Never] smoker. [Denies] alcohol consumption. [Denies] illicit drug use Review of Systems: Review of12 point system was negative set per HPI Physical Examination: GENERAL: [No acute distress.] HEAD: [Normal with no signs of head trauma.] EYES: [PERRLA, EOMI, conjunctiva and sclera normal.] ENT: [Hearing grossly intact, normal oropharynx.] NECK: [Supple without JVD. There is no tenderness, lymphadenopathy, or masses. No thyromegaly. Normal carotid upstrokes without bruits.] LUNGS: [Clear breath sounds bilaterally. No wheezes, or rhonchi.] HEART: [Normal rate and rhythm. Normal S1 and S2 without mumurs, gallop or rub.] VASC: [Peripheral pulses +2 bilaterally.] ABD: [Bowel sounds normal, soft, nontender, no masses, no organomegaly. No audible bruits.] : [Not examined] LYMPH: [No lymphadenopathy noted.] EXT: [No clubbing, cyanosis or edema.] SKIN: [No rashes or lesions noted.] NEURO: [Awake, alert, and oriented x3. No focal sensory or strength deficits noted.] Vital Signs (last 8hr) Date Time Temp Pulse Resp B/P (MAP) Pulse Ox O2 Delivery O2 Flow Rate FiO2 11/23/24 09:45 100 Room Air* 0 21 11/23/24 08:00 98.8 76 18 139/63 95 11/23/24 04:00 98.4 90 16 108/61 99 Room Air Laboratory: [ ] Hematology Labs: Test 11/23/24 03:42 11/22/24 17:46 Range/Units White Blood Count 6.7 4.8-10.8 K/uL Red Blood Count 3.41 L 4.00-5.50 MIL/uL Hemoglobin 9.2 L 12.0-16.0 g/dL Hematocrit 30.8 L 36-48 % Mean Corpuscular Volume 90.3 79-99 fL Mean Corpuscular Hemoglobin 27.0 27.0-33.0 pg Mean Corpuscular Hemoglobin Concent 29.9 L 32.0-36.0 g/dL Red Cell Distribution Width 19.9 H 11.0-15.5 % Platelet Count 252 130-400 K/uL Mean Platelet Volume 11.0 H 7.5-10.5 fL Immature Granulocyte % (Auto) 0.3 0-1 % Neutrophils (%) (Auto) 70.7 40.0-77.0 % Lymphocytes (%) (Auto) 20.2 L 21.0-51.0 % Monocytes (%) (Auto) 5.9 3.0-13.0 % Eosinophils (%) (Auto) 2.3 0.0-8.0 % Basophils (%) (Auto) 0.6 0.0-5.0 % Neutrophils # (Auto) 4.7 1.8-7.7 K/uL Lymphocytes # (Auto) 1.3 1.0-4.8 K/uL Monocytes # (Auto) 0.4 0.1-1.0 K/uL Eosinophils # (Auto) 0.15 0.00-0.70 K/uL Basophils # (Auto) 0.04 0.00-0.20 K/uL Absolute Immature Granulocyte (auto 0.02 0-1 K/uL Nucleated Red Blood Cells 0.0 0.0-0.19 % Red Blood Cell Morphology See comments Erythrocyte Sedimentation Rate 18 0-30 MM/HR Chemistry Labs: Test 11/23/24 10:23 11/23/24 04:34 11/23/24 03:42 11/22/24 23:12 Range/Units Troponin I High Sensitivity 69 *H 4-50 ng/L Whole Blood Glucose 93 70-110 MG/DL Sodium Level 140 136-145 mmol/L Potassium Level 3.5 3.5-5.1 mmol/L Chloride Level 106 101-111 mmol/L Carbon Dioxide Level 27 21-32 mmol/L Blood Urea Nitrogen 14 7-18 mg/dL Creatinine 1.0 0.5-1.0 mg/dL Glomerular Filtration Rate Calc 59 >90 mL/min Random Glucose 74 70-105 mg/dL Hemoglobin A1c 8.6 H 4.0-6.0 % Estimated Average Glucose (eAG) 200 H 70-126 mg/dL Total Calcium 6.9 L 8.5-10.1 mg/dL Magnesium Level 1.20 L 1.80-2.40 mg/dL Total Bilirubin 0.5 0.2-1.0 mg/dL Aspartate Amino Transf (AST/SGOT) 32 10-37 U/L Alanine Aminotransferase (ALT/SGPT) 18 12-78 U/L Alkaline Phosphatase 123 50-136 U/L Total Protein 5.6 L 6.0-8.3 g/dL Albumin 1.7 L 3.5-5.0 g/dL Thyroid Stimulating Hormone (TSH) 22.63 H 0.36-3.74 uIU/mL Lactic Acid Level 2.3 0.8-2.5 mmol/L Test 11/22/24 19:19 11/22/24 17:46 Range/Units Bedside Glucose Comment Protocol Initiated Total Creatine Kinase 175 # 21-232 U/L Diagnostics / Radiology: [Copy/Paste Echos/Imaging Report here] Assessment: PAD (peripheral artery disease) - I73.9 (Primary) Ischemic cardiomyopathy - I25.5 Chronic combined systolic (congestive) and diastolic (congestive) heart failure - I50.42 Presence of aortocoronary bypass graft - Z95.1 Bilateral carotid artery stenosis - I65.23 Atherosclerosis of coronary artery of [place] heart without angina pectoris - I25.10 Type 2 diabetes mellitus Plan: [# transient hypotension The patient presented to the emergency department endorsing dizziness, fatigue and weakness On admission the patient was noted with a low systolic blood pressure in the 80s Also on admission the patient was noted with a capillary blood glucose at 34 mg, receiving D50 one ampule x1 The patient was recently initiated on Entresto and there is a concern that this contributed to her hypotension We will recommend checking orthostatics q.12 hours, if positive administer N/S 500 mL x1 IV ] Keep on telemetry, monitor/replace electrolytes as needed We will request ICD device interrogation Start [id number] mg daily, atorvastatin 40 mg daily, Thank you for this consult cardiology will continue to follow along Hill masterson MD ATTESTATION BY PHYSICIAN I have seen and examined the patient, reviewed the above documentation, participated in medical decision making, made necessary modifications, and agree with the treatment plan as documented by my mid-level provider above. MD ALEXANDRA Sky,HILL Greenfield MD Nov 23, 2024 11:43 Electronically Signed by: HILL MASTERSON MD11/23/24 1340 Electronically Co-Signed by: PODIATRY CONSULTATION NOTE Date of Service: Nov 23, 2024 Reason for Consultation: This 74 years old female was seen in consultation for evaluation and bilateral heel necrotic ulcers over four months' duration and hallux right necrotic ulcer distal aspect. Patient has severe peripheral vascular disease history of cardiomyopathy. Requesting Physician: Dr. Masterson HISTORY OF PRESENT ILLNESS: Gangrene bilateral heels and hallux right peripheral vascular disease with ]past medical history of Coronary artery disease, S/P cabg 2007, advanced cardiom yopathy s/p AICD with systolic recovery and latest EF 55%, Liver cirrhosis , GERD, Diabetes type 2, peripheral neuropathy, hyperlipidemia, hypertension, hypothyroidism, arthritis and cholelithiasis REVIEW OF SYSTEMS CONSTITUTIONAL: Denies fever, chills, or fatigue. HEAD/FACE: No signs of trauma. EENT: Denies eye pain, blurred vision, double vision, or light sensitivity. RESPIRATORY: Denies shortness of breath, cough, wheezing CARDIOVASCULAR: Denies chest pain, palpitation, syncope nonpalpable pulses bilateral feet cold feet. GASTROINTESTINAL/ABDOMINAL: Denies abdominal pain, constipation, diarrhea, na usea or vomiting GENITOURINARY: Denies dysuria or hematuria. MUSCULOSKELETAL: Denies joint pain, tenderness, or trauma. INTEGUMENTARY: Gangrene bilateral heels and hallux right NEUROLOGICAL/PSYCH: Denies anxiety, depression, heat or cold intolerance. PAST MEDICAL HISTORY: As per above PAST SURGICAL HISTORY: Patient has a long history of severe two-vessel CAD on a 2006 cath with a EF of 10 to 15%. She had four-vessel CABG in 2007. 2016 angiogram revealed 4/4 patent grafts. She has known cardiomyopathy with an ICD. 2018 EF was 30 to 35% status post ICD placement. Last echo in July 2024 with systolic recovery, EF 50- 55%. 2022 carotid Doppler showed 50 to 70% stenosis in the R ICA. Previously had chronically occluded bilateral SFAs documented with single-vessel runoff via diseased RASHI's in January 2024. PAST SOCIAL HISTORY: No smoking drinking or using illicit drugs FAMILY HISTORY: Noncontributory Coded Allergies: No Known Drug Allergies (Unverified Allergy, Unknown, 07/05/15) PHYSICAL EXAM EYES: Anicteric. Pupils equal and reactive. HENT: No oral thrush seen, moist Oral mucosa NECK: Supple, no JVD or thyromegaly. LUNGS: Good air entry. No rales, no rhonchi. CARDIOVASCULAR: S1, S2 regular. No murmur heard. Nonpalpable pulses bilateral feet cold feet consistent with a small-vessel disease positive edema and lower extremity and gangrene on bilateral heels and distal hallux right. ABDOMEN: Soft, non tender, bowel sounds present, no organomegaly CENTRAL NERVOUS SYSTEM: Awake, alert, oriented x 3. No focal deficits. SKIN: Gangrenous ulcer dry bilateral heels and hallux ulcer distal aspect right. LYMPHATICS: No peripheral lymphadenopathy MUSCULOSKELETAL: No joint swelling, erythema or tenderness. EXTREMITIES: No cyanosis or clubbing BACK: No deformity, no pressure ulcer. GENITOURINARY: No dysuria or hematuria Vital Sign (Last 24 Hours) 11/23/24 11/23/24 08:00 09:45 Temp 98.8 Pulse 76 Resp 18 B/P (MAP) 139/63 Pulse Ox 100 O2 Delivery Room Air* O2 Flow Rate 0 FiO2 21 Intake & Output (last 24hrs) 11/22/24 11/22/24 11/23/24 15:00 23:00 07:00 Intake Total 300.0 ml Balance 300.0 ml LABS: Laboratory: Test 11/23/24 16:38 11/23/24 12:08 11/23/24 10:23 11/23/24 03:42 Range/Units Whole Blood Glucose 164 H 70-110 MG/DL Prothrombin Time 11.0 9.6-11.6 SEC Prothromb Time International Ratio 1.04 0.85-1.15 Magnesium Level 1.50 L 1.80-2.40 mg/dL [id number]-Type Natriuretic Peptide 5286 H 0-450 pg/mL Procalcitonin 0.07 0.05-0.5 ng/mL Free Thyroxine (T4) Direct 1.25 0.76-1.46 ng/dL Free Triiodothyronine (T3) pg/mL 0.64 L 2.18-3.98 pg/mL Troponin I High Sensitivity 69 *H 4-50 ng/L White Blood Count 6.7 4.8-10.8 K/uL Red Blood Count 3.41 L 4.00-5.50 MIL/uL Hemoglobin 9.2 L 12.0-16.0 g/dL Hematocrit 30.8 L 36-48 % Mean Corpuscular Volume 90.3 79-99 fL Mean Corpuscular Hemoglobin 27.0 27.0-33.0 pg Mean Corpuscular Hemoglobin Concent 29.9 L 32.0-36.0 g/dL Red Cell Distribution Width 19.9 H 11.0-15.5 % Platelet Count 252 130-400 K/uL Mean Platelet Volume 11.0 H 7.5-10.5 fL Immature Granulocyte % (Auto) 0.3 0-1 % Neutrophils (%) (Auto) 70.7 40.0-77.0 % Lymphocytes (%) (Auto) 20.2 L 21.0-51.0 % Monocytes (%) (Auto) 5.9 3.0-13.0 % Eosinophils (%) (Auto) 2.3 0.0-8.0 % Basophils (%) (Auto) 0.6 0.0-5.0 % Neutrophils # (Auto) 4.7 1.8-7.7 K/uL Lymphocytes # (Auto) 1.3 1.0-4.8 K/uL Monocytes # (Auto) 0.4 0.1-1.0 K/uL Eosinophils # (Auto) 0.15 0.00-0.70 K/uL Basophils # (Auto) 0.04 0.00-0.20 K/uL Absolute Immature Granulocyte (auto 0.02 0-1 K/uL Nucleated Red Blood Cells 0.0 0.0-0.19 % Sodium Level 140 136-145 mmol/L Potassium Level 3.5 3.5-5.1 mmol/L Chloride Level 106 101-111 mmol/L Carbon Dioxide Level 27 21-32 mmol/L Blood Urea Nitrogen 14 7-18 mg/dL Creatinine 1.0 0.5-1.0 mg/dL Glomerular Filtration Rate Calc 59 >90 mL/min Random Glucose 74 70-105 mg/dL Hemoglobin A1c 8.6 H 4.0-6.0 % Estimated Average Glucose (eAG) 200 H 70-126 mg/dL Total Calcium 6.9 L 8.5-10.1 mg/dL Total Bilirubin 0.5 0.2-1.0 mg/dL Aspartate Amino Transf (AST/SGOT) 32 10-37 U/L Alanine Aminotransferase (ALT/SGPT) 18 12-78 U/L Alkaline Phosphatase 123 50-136 U/L Total Protein 5.6 L 6.0-8.3 g/dL Albumin 1.7 L 3.5-5.0 g/dL Thyroid Stimulating Hormone (TSH) 22.63 H 0.36-3.74 uIU/mL Test 11/23/24 00:50 11/22/24 23:12 11/22/24 19:19 11/22/24 17:46 Range/Units Urine Color YELLOW YELLOW Urine Appearance CLOUDY H CLEAR Urine pH 6.0 5.0-8.0 Urine Specific [place] 1.024 1.001-1.031 Urine Protein 50 H NEGATIVE mg/dL Urine Glucose (UA) >=1000 H NEGATIVE mg/dL Urine Ketones NEGATIVE NEGATIVE mg/dL Urine Occult Blood SMALL H NEGATIVE Urine Nitrate NEGATIVE NEGATIVE Urine Bilirubin NEGATIVE NEGATIVE mg/dL Urine Urobilinogen 0.2 0.2-1.0 mg/dL Urine Leukocyte Esterase 500 H NEGATIVE [place]/uL Urine RBC 51-100 H 0-1 /HPF Urine WBC 11-25 H 0-1 /HPF Urine Squamous Epithelial Cells FEW 0-2 /HPF Urine Bacteria FEW None Seen /HPF Lactic Acid Level 2.3 0.8-2.5 mmol/L Bedside Glucose Comment Protocol Initiated Red Blood Cell Morphology See comments Erythrocyte Sedimentation Rate 18 0-30 MM/HR Total Creatine Kinase 175 # 21-232 U/L DIAGNOSTICS / RADIOLOGY: [ ] ASSESSMENT: Peripheral arterial disease Gangrene bilateral heels necrotic ulcers. Small-vessel disease in bilateral feet with a ischemic changes. Hallux ulcer ischemic right. PLAN: Patient was admitted secondary to generalized weakness nausea vomiting diarrhea. Recommended continued medical management at this time we will follow up cardiovascular recommendations in the future patient to have any type of foot surgeries we will need revascularization of the lower extremities with poor prognosis secondary to above-mentioned problems. In the meanwhile we will recommend local wound care Betadine dressings or keep open to air dry with Betadine paint on a daily basis and we will follow up as an outpatient once the patient more stable at discharge we will order follow up by cardiovascular recommendations. CAROLINE BLACKMON DPM Nov 23, 2024 18:36 Electronically Signed by: CAROLINE BLACKMON DPM11/23/241835 Electronically Co-Signed by: Procedure(s): PROCEDURE: CXR1VW - CHEST 1VW CHEST 1VW HISTORY: Weakness COMPARISON: 08/01/2024 FINDINGS: A frontal projection of the chest was obtained. Mild bilateral pulmonary infiltrates are seen may be related to mild pulmonary vascular congestion with possible superimposed pneumonitis. Poststernotomy changes are seen. The heart is enlarged. Degenerative changes of the thoracolumbar spine are present. Pacemaker is seen entering from the left. No evidence of aortic calcification is seen. IMPRESSION: 1. Mild bilateral pulmonary infiltrates are seen may be related to mild pulmonary vascular congestion with possible superimposed pneumonitis. DICTATED BY: ANRDEAS JERRY MD DATE: 11/22/242056 ELECTRONICALLY SIGNED BY: ANDREAS JERRY MD DATE: 11/22/242101 PROCEDURE: FT 3VW LT - FOOT COMP 3+VWS LT FOOT COMP 3+VWS LT HISTORY: Weakness COMPARISON: None TECHNIQUE: 3 images of the left foot were obtained. FINDINGS: There is no acute displaced fracture or dislocation. Vascular calcifications are seen. Degenerative changes are seen. IMPRESSION: 1. Findings as described above. DICTATED BY: ANDREAS JERRY MD DATE: 11/22/242035 ELECTRONICALLY SIGNED BY: ANDREAS JERRY MD DATE: 11/22/242039 PROCEDURE: FT 3VW RT - FOOT COMP 3+VWS RT FOOT COMP 3+VWS RT HISTORY: Weakness COMPARISON: None TECHNIQUE: 3 images of the right foot were obtained. FINDINGS: Vascular calcifications are seen. There is no acute displaced fracture or dislocation. Degenerative changes are seen. IMPRESSION: 1. Findings as described above. DICTATED BY: ANDREAS JERRY MD DATE: 11/22/242030 ELECTRONICALLY SIGNED BY: ANDREAS JERRY MD DATE: 11/22/242035 PROCEDURE: ABD PEL WO - CT ABDOMEN/PELVIS W/O CONTRAST CT ABDOMEN/PELVIS W/O CONTRAST HISTORY: Tenderness COMPARISON: 3 2024 TECHNIQUE: Multiple sequential axial images of the abdomen and pelvis were obtained from the dome of the diaphragm through symphysis pubis. Patient was not given contrast through intravenous route. Oral contrast was not given. FINDINGS: Small bilateral pleural effusions are seen. Poststernotomy changes are seen. There is no evidence of parenchymal disease or pulmonary nodule of the visualized lower lungs. Degenerative changes of the thoracolumbar spine are present. The heart is not enlarged. Gallstones are suspected in the gallbladder. There is liver parenchymal disease. The liver, spleen, adrenal glands and pancreas are unremarkable. There is no evidence of hydronephrosis bilaterally. No evidence of renal stone is seen. There are bilateral renal atrophy. Nonspecific small bowel dilatation and small bowel wall thickening seen. Fecal material is seen in the colon. There are normal size retroperitoneal and mesenteric lymph nodes. Small to moderate ascites is seen. Atherosclerotic changes are present. Pelvic sidewalls are symmetric bilaterally. Bladder is well distended without wall thickening. IMPRESSION: 1. Nonspecific small bowel dilatation or thickening is seen. [id number] ascites. CT was performed with one or more following dose reduction techniques: automated exposure control, adjustment of the mA and kv according to patient's size, or use of a iterative reconstruction technique. DICTATED BY: ANDREAS JERRY MD DATE: 11/23/24 1342 ELECTRONICALLY SIGNED BY: ANDREAS JERRY MD DATE: 11/23/24 1356 PROCEDURE: VENOUS UNI - US VENOUS DOPPLER UNILATERAL US VENOUS DOPPLER UNILATERAL HISTORY: Right arm swelling COMPARISON: None TECHNIQUE: Right upper extremity venous Doppler ultrasound study was performed. FINDINGS: The right subclavian, axillary, and brachial veins are visualized. Diminished flow is noted in the right distal subclavian, axillary, brachial, cephalic and basilic veins. IMPRESSION: 1. There is diminished flow in the right distal subclavian, axillary, brachial, cephalic and basilic veins. The right subclavian vein proximally in most likely occluded. 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 Bilateral heel necrotic ulcers with dry gangrene, toe ulcer POA Anemia of chronic disease POA Chronic kidney disease POA Diabetes POA Uncontrolled Hypothyroidism POA Hyperlipidemia POA CHF POA Peripheral vascular disease POA Carotid artery stenosis, bilateral, POA Chronic combined systolic (congestive) and diastolic (congestive) heart failure, POA ASSESSMENT: Acute C.Diff colitis, First recurrence POA patient was found to be CDiff positive at outpatient office recently and was treated for Cdiff in July 2024 Patient c/o loose stools and abdominal pain -improved Pending stool cultures including cDiff continue PO Vancomycin for 14 days Follow up with primary care doctor in 2 to 3 days Anasarca secondary to Hypoalbuminemia , CKD and heart failure Liver cirrhosis as per previous CT Stable liver function Continue Lasix PO Transient hypotension POA Ischemic cardiomyopathy Chronic combined systolic (congestive) and diastolic (congestive) heart failure, POA As per cardiology : The patient was recently initiated on Entresto and there is a concern that this contributed to her hypotension Orthostatic vitals negative will hold Entresto for now as recommended by Cardiology BNP elevated at 5000s - secondary to Entresto and colitis - will continue to monitor ECHO was cancelled by Cardiology Follow up with Cardiology outpatient Right subclavian vein near occlusion , POA right>left upper extremity swelling continue Eliquis Follow up with vascular surgeon outpatient Hypoglycemia POA resolved stable blood sugars at present continue heart healthy diet restrict Na 2 gms daily Uncontrolled Hypothyroidism POA TSH at 22 continue Levothyroxine 125mcg outpatient and repeat thyroid profile at primary care office Discharge Instructions: DATE OF ADMISSION: 11.22.24 DATE OF DISCHARGE: 11.24.24 DISPOSITION: HOME CONDITION: Medically stable CONSULTANTS: CARDIOLOGY, PODIATRY FOLLOW UP APPOINTMENTS: Follow up with your primary care doctor in 2 to 3 days . Follow up with Cardiology in a week Follow up vascular surgeon PROCEDURES: NA IMAGING: report attached to summary MICROBIOLOGY: report attached to summary HOME MEDICATIONS: see med rec NEW MEDICATIONS: See medication reconciliation EMERGENCY INSTRUCTIONS: The patient was instructed to present to the nearest Emergency department or call 911 once their symptoms will return or worsen. Home Medications: Active Scripts Furosemide (Furosemide) 40 Mg Tablet, 1 TAB PO DAILY for HEARTFAILURE for 30 Days, #30 TAB 0 Refills Prov:BRIAN SILVERIO MD 08/02/24 Reported Medications Levothyroxine Sodium (Levothyroxine) 125 Mcg Capsule, 1 CAP PO DAILY for 30 Days, #30 CAP 0 Refills 11/23/24 Pantoprazole Sodium (Pantoprazole Sodium) 40 Mg Tablet., 1 TAB PO DAILY for 30 Days, #30 TAB 0 Refills 11/23/24 Apixaban (Eliquis) 5 Mg Tablet, 1 TAB PO BID for 30 Days, #60 TAB 0 Refills 11/23/24 Insuln Asp Prt/Insulin Aspart (Novolog Mix 70-30 Vial) 100 Unit/Ml (70-30) Vial, 10 UNIT SQ HS, VIAL 07/04/24 Insuln Asp Prt/Insulin Aspart (Novolog Mix 70-30 Vial) 100 Unit/Ml (70-30) Vial, 20 UNIT SQ DAILY, VIAL 07/04/24 Sacubitril/Valsartan (Entresto 49 mg-51 mg Tablet) 49 Mg-51 Mg Tablet, 1 TAB PO BID for 30 Days, #60 TAB 0 Refills 07/04/24 Aspirin (Aspirin EC) 81 Mg Tablet.dr, 1 TAB PO DAILY for 30 Days, #30 TAB 0 Refills 07/04/24 Dapagliflozin Propanediol (Farxiga) 10 Mg Tablet, 1 TAB PO DAILY for 30 Days, #30 TAB 0 Refills 07/04/24 Simvastatin (Simvastatin) 40 Mg Tablet, 1 TAB PO HS 02/08/23 Discontinued Reported Medications Alendronate Sodium (Alendronate Sodium) 35 Mg Tablet, 35 MG PO QWEEK, TAB 07/30/24 Metformin HCl (Metformin HCl) 500 Mg Tablet, 1 TAB PO BID for 30 Days, #60 TAB 0 Refills 07/30/24 Gabapentin (Gabapentin) 100 Mg Capsule, 100 MG PO TID, CAP 07/30/24 Loratadine (Loratadine) 10 Mg Tablet, 10 MG PO DAILY, TAB 07/30/24 Famotidine (Famotidine) 40 Mg Tablet, 1 TAB PO DAILY for 30 Days, #30 TAB 0 Refills 07/30/24 Ergocalciferol (Vitamin D2) (Vitamin D2) 1,250 Mcg (16668 Unit) Capsule, 1250 MCG PO QWEEK, CAP 07/30/24 Clonidine HCl (Catapress 0.2 mg Tab) 0.2 Mg Tablet, 1 TAB PO HS 07/04/24 Levothyroxine Sodium (Levothyroxine) 100 Mcg Capsule, 1 CAP PO DAILY for 30 Days, #30 CAP 0 Refills 07/04/24 Rivaroxaban (Xarelto) 10 Mg Tablet, 2.5 MG PO BID, TAB 07/04/24 Carvedilol (Carvedilol) 6.25 Mg Tablet, 6.25 MG PO BID, TAB 07/03/23 Discontinued Scripts Acetaminophen with Codeine (Acetaminophen-Cod #3 Tablet) 300 Mg-30 Mg Tablet, 1 TAB PO Q6HPRN PRN for pain, #7 TAB 0 Refills Prov:KELLY CHRISTOPHER MD 08/10/24 Nitrofurantoin Monohyd/M-Cryst (Macrobid 100 mg Capsule) 100 Mg Capsule, 1 CAP PO BID for 7 Days, #14 CAP 0 Refills Prov:KELLY CHRISTOPHER MD 08/10/24 Cefdinir (Cefdinir) 300 Mg Capsule, 1 CAP PO BID for uti for 10 Days, #20 CAP 0 Refills Prov:BRIAN SILVERIO MD 08/02/24 Furosemide (Furosemide) 20 Mg Tablet, 20 MG PO DAILYLUNCH for 30 Days, #30 TAB 0 Refills Prov:BRIAN SILVERIO MD 08/02/24 Time spent arranging discharge: 1-30 minutes ATTESTATION BY PHYSICIAN I have seen and examined the patient. I reviewed the documentation, medical decision making, and treatment plan as noted by the resident provider above. I agree with the findings and plan of care. STEPHIE CRAWFORD MD, MD Nov 24, 2024 10:34
[2024-11-24 10:58] LABS: HEMATOCRIT 25.6 % (36-48)
--- NOTE | 2024-11-24 12:11 | NUR ---
[facility] Consult: Patient assessed by wound healing team. See wound assessment. Assessment and recommendations provided to primary nurse. Education provided. Addendum: 11/24/24 at 1445 by NAHID LYNCH RN RN/ Amended: Links added.
[2024-11-24] MEDS ORDERED: VANC125C19 PO ×2 (14:53)
--- NOTE | 2024-11-24 16:25 | NUR ---
PATIENT DISCHARGED HOME ID BAND,IV AND TELE SHITAL REMOVED. DISCHARGE INSTRUCTIONS EXPLAINED AND GIVEN TO PATIENTS FAMILY. PATIENTS FAMILY VERBALIZED UNDERSTANDING. BELONGINGS PACKED AND TAKEN BY PATIENT. WHEELED DOWN TO PRIVATE CAR.
[2024-11-26 05:44] LABS: C DIFFICILE TOXIN A/B Not Detected (Not Detected); ENTEROAGGREGATIVE ECOLI Not Detected (Not Detected); GIARDIA LAMBLIA Not Detected (Not Detected); PLESIOMONAS SHIGELOIDES Not Detected (Not Detected); SAPOVIRUS Not Detected (Not Detected); SHIGELLA/ENTEROINVASIVE E COLI Not Detected (Not Detected); VIBRIO Not Detected (Not Detected); VIBRIO CHOLERAE Not Detected (Not Detected)
--- NOTE | 2024-11-27 17:26 | NUR ---
Transitional Phone Call Attempted to call twice, left message [phone] and no return call.
== END 2024-11-24 16:30 | disposition home or self-care (01) | DRG 372 ==
LOC: EDH 17:01 → EDHIP 22:10 → 3AH 23:54
PROVIDERS: ADMIT Internal Medicine; ATTEND Internal Medicine
DX: A04.71 Enterocolitis due to Clostridium difficile, recurrent (principal); E11.52 Type 2 diabetes mellitus with diabetic peripheral angiopathy with gangrene; I13.0 Hypertensive heart and chronic kidney disease with heart failure and stage 1 through stage 4 chronic kidney disease, or unspecified chronic kidney disease; I50.42 Chronic combined systolic (congestive) and diastolic (congestive) heart failure; L97.418 Non-pressure chronic ulcer of right heel and midfoot with other specified severity; L97.428 Non-pressure chronic ulcer of left heel and midfoot with other specified severity; E03.9 Hypothyroidism, unspecified; E11.22 Type 2 diabetes mellitus with diabetic chronic kidney disease; E11.649 Type 2 diabetes mellitus with hypoglycemia without coma; N18.9 Chronic kidney disease, unspecified; D63.8 Anemia in other chronic diseases classified elsewhere; E11.42 Type 2 diabetes mellitus with diabetic polyneuropathy; E11.621 Type 2 diabetes mellitus with foot ulcer; E78.5 Hyperlipidemia, unspecified; E88.09 Other disorders of plasma-protein metabolism, not elsewhere classified; I25.10 Atherosclerotic heart disease of native coronary artery without angina pectoris; I25.5 Ischemic cardiomyopathy; I65.23 Occlusion and stenosis of bilateral carotid arteries; K74.60 Unspecified cirrhosis of liver; I95.2 Hypotension due to drugs; K21.9 Gastro-esophageal reflux disease without esophagitis; T46.5X5A Adverse effect of other antihypertensive drugs, initial encounter; Z79.01 Long term (current) use of anticoagulants; Z79.84 Long term (current) use of oral hypoglycemic drugs; Z95.1 Presence of aortocoronary bypass graft; Z95.810 Presence of automatic (implantable) cardiac defibrillator; Z79.4 Long term (current) use of insulin; Z79.82 Long term (current) use of aspirin; Z82.49 Family history of ischemic heart disease and other diseases of the circulatory system; Z83.3 Family history of diabetes mellitus; Y92.89 Other specified places as the place of occurrence of the external cause
CPT/HCPCS: 36415; 71045; 73630; 74176; 80048; 80053; 81001; 82550; 82948; 83036; 83605; 83735; 83880; 84145; 84439; 84443; 84481; 84484; 85014; 85018; 85025; 85610; 85651; 87040; 87086; 87324; 87507; 93005; 93971; 96374; 96375; 99285; G0378; J0692; J1815; J1938; J3370; J3475; J7030; J7070

== ENCOUNTER → 2024-11-27 | Outpatient (CLI) | payer OTHER, MEDICARE ==
[~2024-11-27] MED LIST changes: +APIX5TAB PO; +IOHEXOL-350 75 ML VIAL IV ONE; +LEVO125C5 PO; +PANT40TA54 PO; +VANC125C19 PO
--- NOTE | 2024-11-28 08:53 | HMCIMG ---
EXAMINATION: CTA Abdomen and Pelvis With Runoff to the Lower Extremities with Intravenous Contrast. CLINICAL HISTORY: Patient presents with peripheral vascular disease. COMPARISON: None provided. TECHNIQUE: Axial CTA images of the abdomen, pelvis, and lower extremities were obtained in the arterial phase following intravenous contrast administration. Coronal and sagittal reformatted images were generated and reviewed. 3D reformatted images were reviewed on an independent workstation. CONTRAST: Administered intravenously. FINDINGS: VASCULATURE: Aorta: Extensive atheromatous calcifications causing 30%???40% luminal narrowing. No abdominal aortic aneurysm or dissection. Celiac Trunk: Eccentric atheromatous calcified plaques causing 40%???50% luminal narrowing. Left Gastric Artery: Normal flow, course, and caliber. Common Hepatic Artery: Short segment complete thrombosis with recanalized flow in the hepatic artery proper. Splenic Artery: Eccentric atheromatous calcified plaques causing more than 90% luminal narrowing. Superior Mesenteric Artery and Branches: Eccentric atheromatous calcific plaques causing up to 70%???80% luminal narrowing. Inferior Mesenteric Artery: Eccentric atheromatous calcific plaques causing more than 90% luminal narrowing. Renal Arteries: Eccentric atheromatous calcific plaques at the origins of bilateral renal arteries causing more than 90% luminal narrowing. Right Iliac Arteries: Eccentric atheromatous calcified and non-calcified plaques in the right common and external iliac arteries and bilateral internal iliac arteries causing up to 60%???70% luminal narrowing. Left Iliac Arteries: Eccentric atheromatous plaques in the left common iliac artery origin causing 60%???70% luminal narrowing. Complete thrombosis of the left external iliac artery with recanalized flow in the left common femoral artery. Right Femoral and Popliteal Arteries: Eccentric atheromatous plaques in the right common femoral artery (30%???40%) and right superficial femoral artery (80%???90% in proximal and mid; complete thrombosis distally). Complete thrombosis of the right proximal and mid popliteal artery with recanalized distal flow. Right profunda femoris artery with 60%???70% luminal narrowing. Right Calf Arteries: Eccentric atheromatous plaques in the right tibioperoneal trunk, anterior tibial, and peroneal arteries causing up to 70%???80% luminal narrowing. Complete thrombosis of the right posterior tibial artery. Right dorsalis pedis artery with 70%???80% luminal narrowing. Left Femoral and Popliteal Arteries: Eccentric atheromatous plaques in the left common femoral artery causing 70%???80% luminal narrowing. Long segment complete thrombosis of the left superficial femoral and popliteal arteries. Left profunda femoris artery with 60%???70% luminal narrowing. Left Calf Arteries: Complete thrombosis of the left tibioperoneal trunk. Recanalized flow with streaky contrast opacification and extensive plaques in the left anterior tibial artery (70%???80% narrowing). Long segment thrombosis of the left peroneal and posterior tibial arteries. Left dorsalis pedis artery with 50%???60% luminal narrowing. LOWER THORAX: Mild cardiomegaly with reflux of contrast into the IVC and hepatic veins. Right moderate and left mild pleural effusion. No basilar airspace consolidation. ABDOMEN: Liver: Unremarkable. Gallbladder and Bile Ducts: Minimally distended gallbladder. No calcified stone or ductal dilation. Pancreas: Unremarkable. Spleen: Unremarkable. Adrenals: No mass. Kidneys and Ureters: Symmetric enhancement. No hydronephrosis or solid mass. Stomach and Bowel: No obstruction or bowel wall thickening. No evidence of acute diverticulitis. Appendix: Within normal limits. PELVIS: Bladder: Unremarkable. Reproductive Organs: The uterus and both ovaries are atrophic, postmenopausal. Peritoneum: Moderate ascites. No free air. Lymph Nodes: No lymphadenopathy. Bones: No acute osseous abnormality. LOWER EXTREMITIES: Soft Tissues: Diffuse subcutaneous edema within bilateral lower limbs. Generalized anasarca. Lymph Nodes: No lymphadenopathy. Bones: No acute osseous abnormality. IMPRESSION: Severe multilevel peripheral arterial disease involving the abdominal aorta, iliac, femoral, popliteal, and tibial arteries bilaterally with extensive eccentric atheromatous plaques and multiple sites of high-grade stenosis and complete thrombosis. Complete thrombosis of the left external iliac, left superficial femoral, left popliteal, left tibioperoneal trunk, and multiple left calf arteries. Complete thrombosis of the right superficial femoral (distal), right popliteal (proximal and mid), and right posterior tibial arteries. More than 90% luminal narrowing of bilateral renal artery origins. More than 90% luminal narrowing of the splenic artery. 40%???50% luminal narrowing of the celiac artery. More than 90% luminal narrowing of the inferior mesenteric artery. Short segment thrombosis of the common hepatic artery with recanalized flow in the hepatic artery proper. Normal flow, course, and caliber of the left gastric artery. Diffuse subcutaneous edema and generalized anasarca involving the lower extremities. Moderate ascites. Right moderate and left mild pleural effusion. Mild cardiomegaly with contrast reflux into the IVC and hepatic veins. /Stowell
== END | disposition home or self-care (01) ==
LOC: RAH 07:55
PROVIDERS: ATTEND Internal Medicine Cardiovascular Disease
DX: I74.3 Embolism and thrombosis of arteries of the lower extremities (principal); I70.203 Unspecified atherosclerosis of native arteries of extremities, bilateral legs; I70.1 Atherosclerosis of renal artery; I70.0 Atherosclerosis of aorta; I74.8 Embolism and thrombosis of other arteries; I51.7 Cardiomegaly; I70.8 Atherosclerosis of other arteries; J90 Pleural effusion, not elsewhere classified; R18.8 Other ascites; K55.1 Chronic vascular disorders of intestine; N85.8 Other specified noninflammatory disorders of uterus; N83.312 Acquired atrophy of left ovary; N83.311 Acquired atrophy of right ovary
CPT/HCPCS: 75635; Q9967